=== PATIENT | male | born 1970 | race Two or more races ===

== ENCOUNTER 2025-05-26 02:10 | Inpatient (IN) | payer MEDICAID, OTHER ==
[~2025-05-26] VITALS: Ht 160 cm; Wt 65.8 kg
[2025-05-26] MEDS: SODIUM CHLORIDE 0.9% 1,000 ML IV ONE ×5 (02:34→21:14)
--- NOTE | 2025-05-26 02:34 | ECG ---
[facility] Test Date: 2025-05-26 Test Time: 02:15:51 Pat Name: JEAN PAUL AGUILLON Department: ED Room: 1030-ER Gender: M Cycle Analyst: TANESHA : 1970 Requested By: EMERGENCY EMERGENCY Order Number: [id number] Reading MD: Cory Norris Measurements Intervals [place] Rate: 134 P: 82 AR: 180 QRS: 83 QRSD: 95 T: -17 QT: 307 QTc: 459 Interpretive Statements Sinus tachycardia Consider right atrial enlargement Abnormal R-wave progression, early transition Borderline repolarization abnormality Borderline ST elevation, anterolateral leads Electronically Signed On 05-26-2025 18:00:14 PST by Cory Norris Please click the below link to view image of tracing.
[2025-05-26 02:35] VITALS: PULSE 129; RESP 28; O2SAT 94
[2025-05-26 02:46] LABS: Hematocrit 36.3 % (41.0-53.0); Hemoglobin 12.6 g/dL (13.5-17.5); Mean Corpuscular Hemoglobin 30.4 pg (28.0-32.0); Mean Corpuscular Volume 87.7 fL (80.0-100.0); Nucleated Red Blood Cells % 0.0 %
[2025-05-26 03:08] LABS: Alanine Aminotransferase 800 U/L (7-40); Albumin 3.2 g/dL (3.2-4.8); Alkaline Phosphatase 378 U/L (46-116); Anion Gap 14 (5-15); BUN/Creatinine Ratio 24.6 (10.0-20.0); Blood Urea Nitrogen 32 mg/dL (9-23); Calcium 7.7 mg/dL (8.7-10.4); Carbon Dioxide 19 mmol/L (20-31); Chloride 97 mmol/L (98-107); Glucose 272 mg/dL (74-106); Lipase 26 U/L (12-53); Potassium 3.5 mmol/L (3.5-5.1); Sodium 130 mmol/L (136-145); Total Protein 5.5 g/dL (5.7-8.2)
[2025-05-26 03:25] LABS: Bilirubin, Total 2.8 mg/dL (0.2-1.0)
[2025-05-26 03:26] LABS: Lactic Acid w/Reflex 3.2 mmol/L (0.4-2.0)
[2025-05-26] MEDS ORDERED: VANCOMYCIN PER PHARMACY 0 MG IV SCH (03:30)
[2025-05-26 03:46] LABS: Urine Amorphous Crystal FEW /hpf (None Seen); Urine Protein, UAD 1+ (Negative)
--- NOTE | 2025-05-26 03:49 | ED.PDOC ---
Sepsis Screening Sepsis Initial Screening Date: May 26, 2025 Time of Initial Screenin Temp<36 C (96.8 F) or >38.3 C: Yes Respiratory Rate >20: Yes Heart Rate >90: Yes SBP <90 or MAP <65 mmHG: No New Acute Mental Status Change: No Is the patient on CPAP, BIPAP,: No History of Present Illness HPI Comments 54-year-old male with a past medical history of [id number] type 2 diabetes mellitus, and hyperlipidemia has come to the emergency room with chief complaints of abdominal pain, high blood glucose levels and decreased appetite. Patient states that it began with body pain 5 days ago and he began having severe abdominal pain 2 days ago- located 2 cm next to the umbilicus on the right side, dull, 9/10 in intensity, constant, non-radiating, with no aggravating or relieving factors, associated with 1 episode of vomiting the same day, inability to keep down any food and urinary symptoms (dysuria, increased frequency). Today he states that the abdominal pain was worsening, and he began developing fever, chills and headache prompting him to visit the ER. Patient also reports his blood glucose levels have been increasing (despite his compliance with home medication glipizide and metformin) stating his last blood glucose level before coming to the ER was 380. On initial evaluation, patient is septic with 103.1, HR 135, RR 39, wbc 3.6. LA was 3.2, ALT 800, AST 849, ALP 378, total bilirubin 2.8. CT of the abdomen shows 'large hypodense heterogeneous lesion in the posterior aspect of the right lobe measuring 8.3 cm diameter. This is of uncertain etiology. The appearance could be consistent with a hepatic abscess. HEPATIC Neoplasm is also concern.' USG abdomen shows: 'Ill- defined hypoechoic mass in the right hepatic lobe measuring 6.4 x 6.7 x 6.3 cm. Recommend further evaluation with MRI liver mass protocol; Gallbladder wall thickening which may be due to contracted state. No gallstones seen.' Patient needs further evaluation and management. Patient is from [place], and since he is unstable, authorization was requested for continued care at this facility ([facility]) and authorization was given by Dr. Vences from [place]. Authorization number: [id number]. Chief Complaint: Abdominal Pain Time Seen by MD: 03:15 Primary Care Provider: Thang () Reviewed Notes: Medications, Allergies Allergies: Coded Allergies: NO KNOWN ALLERGIES (Unverified , 05/26/25) Information Source: Patient Mode of Arrival: EMS Severity: Severe Timing: Days Duration: Days Past Medical History PAST MEDICAL HISTORY: DM, High Lipids Surgical History: Denies all surgeries Family History Family History: Reviewed,noncontributory to illness Social History Smoker: Quit Greater Than 1 Year Alcohol: Denies ETOH Use Drugs: Denies Drug Use Lives In: Home Constitutional: Chills, Fever, Other (Body ache) EENTM: No Symptoms Reported Respiratory: No Symptoms Reported Cardiovascular: No Symptoms Reported Gastrointestinal: Abdominal Pain, Constipation, Nausea, Poor Appetite, Poor Fluid Intake, Vomiting Genitourinary: Dysuria, Frequency Neurological: No Symptoms Reported Musculoskeletal: No Symptoms Reported Integumentary: No Symptoms Reported Hematologic/Lymphatic: No Symptoms Reported Endocrine: No Symptoms Reported Psychiatric: N/A Physical Exam General Appearance: Moderate Distress HEENT: None Neck: None Respiratory: No Respiratory Distress, Normal Breath Sounds Cardiovascular: Tachycardia Breast Exam: Deferred Gastrointestinal: RLQ, Suprapubic, Tenderness Genitalia: Deferred Pelvic: Deferred Rectal: Deferred Extremities: Normal inspection, Normal range of motion, No pedal edema Neurologic: None Cerebellar Function: Normal Reflexes: Normal Skin: Normal Color Lymphatic: None Sepsis Initial Assessment Sepsis Initial Assessment Date of Initial Assessment: May 26, 2025 Time of Initial Assessment: 23:20 Temperature (Fahrenheit): 103.1 Temperature Source: Oral Pulse Rate (adult): 129 Blood Pressure Systolic: 142 Blood Pressure Diastolic: 74 Blood Pressure Mean: 96 Respiratory Rate: 28 Respiratory Effort: Non-Labored Respiratory Pattern: Regular Oxygen Saturation: 96 Pulse Rhythm: Regular Breath sounds: Clear Capillary Refill: < 3 seconds Pulse Location: Radial Pulse Strength: Normal Pulse Assessment Method: Face And Fill Packer Skin Temperature: Warm Skin Moisture: Dry Skin Tugor: WNL Skin Color: WNL Fingernail Color: WNL Was a procedure done? Was a procedure done?: No Differential Dx Considerations may include: Sepsis to due Hepatic abscess, hepatic malignancy SEPSIS Sepsis Screen Date sepsis recognized/suspect: May 26, 2025 Time Sepsis recognized/suspect: 0230 Recent Procedure: No On Antibiotic Therapy: No Respiratory Rate >20: Yes Heart Rate >90: Yes Temp<36 C (96.8 F) or >38.3 C: Yes SBP <90 or MAP <65 mmHG: No New Acute Mental Status Change: No Is the patient on CPAP, BIPAP,: No Physician Orders Vital Signs Q1HR (05/26/25 02:17) Saline Lock (05/26/25 02:17) Face And Fill Packer (05/26/25 ) Rectal/Core Temps Only (05/26/25 02:17) Notify Md If Abnormal Vs (05/26/25 02:17) Blood Culture (05/26/25 02:17) Chest Xray 1 View (05/26/25 02:17) Electrocardigram (05/26/25 02:21) Vancomycin Per Pharmacy (05/26/25 03:30) Urine Bacterial Culture (05/26/25 03:20) Ct Ab Pel With Iv Con Only (05/26/25 04:55) Blood Glucose Assessment (05/26/25 04:55) Abdomen Complete Sonogram (05/26/25 04:06) * Radiologist Consult (05/26/25 07:16) * Surgical Consult (05/26/25 07:16) Vital Signs Date Time Temp Pulse Resp B/P (MAP) Pulse Ox O2 Delivery O2 Flow Rate FiO2 05/26/25 11:30 99.1 152 52 134/95 (108) 92 99.1 05/26/25 11:00 134 41 144/92 (109) 100 05/26/25 07:54 113 26 97 Nasal Cannula* 2 28 05/26/25 07:53 98.1 113 26 96/65 (75) 97 98.1 05/26/25 05:30 135 41 129/83 (98) 92 05/26/25 04:00 130 35 109/66 (80) 92 05/26/25 02:35 129 28 94 Room Air* 0 21 05/26/25 02:32 103.1 135 18 142/74 96 103.1 05/26/25 02:30 136 39 130/78 (95) 92 05/26/25 02:15 134 Laboratory Tests Test 05/26/25 02:26 05/26/25 04:43 Lactic Acid Level 3.2 mmol/L (0.4-2.0) *H 2.7 mmol/L (0.4-2.0) *H White Blood Count 3.6 10^3/uL (4.4-10.8) L Reassessment Post Fluid Date of Reassessment: May 26, 2025 Time of Reassessment: 04:20 Temperature: 98.4 Systolic BP: 110 Blood Pressure Time: 04:18 Respiration: 32 Oxygen Saturation: 94 Pulse rate: 130 Pulse Location: Radial Pulse Strength: Normal Capillary Refill Exam: < 3 seconds Skin Temperature: Warm Skin Moisture: Dry Skin Tugor: WNL Skin Color: WNL Fingernail Color: WNL Departure 1 Departure Time of Disposition: 07:16 Impression: Primary Impression: Sepsis Additional Impression: Hepatic abscess Disposition: ADMITTED INPATIENT Admit to: Tele Condition: Unstable Comments Attestation: I personally saw and evaluated the patient. I agree with the findings and plan of care as documented by the resident note. SY VALENCIA MD Critical Care Note Critical Care Time?: No Stability Stability form required: No Heart Score Heart Score: Heart Score Response (Comments) Value History N/A 0 EKG N/A 0 Age N/A 0 Risk Factors N/A 0 Troponin N/A 0 Total 0 DAVID CROCKER RESIDENT May 26, 2025 03:49 SY VALENCIA MD May 27, 2025 22:39
[2025-05-26] MEDS: VANCOMYCIN 1GM/250ML KIT IV ONE (04:15)
--- NOTE | 2025-05-26 04:35 | DVH ---
CHEST RADIOGRAPH Indication: Suspected Sepsis Technique: 1 view Comparison: None FINDINGS: Lines and Tubes: External leads. Lungs/Pleura: Low lung volumes with vascular crowding and interstitial prominence. No focal consolidation. No large pleural effusion or pneumothorax. Cardiomediastinum: Size within normal limits for technique. Other: No acute osseous abnormality. IMPRESSION: Interstitial opacities may be exaggerated by low lung volumes, represent edema or atypical infection. No appreciable consolidation.
[2025-05-26] MEDS: IOHEXOL 300 MG/ML 100ML BOTTLE IJ ONE (05:02)
[2025-05-26] MEDS: ACETAMINOPHEN 500 MG TAB or CAP PO ONE (05:20)
[2025-05-26 05:51] LABS: COVID19 ANTIGEN SOFIA FIA NEGATIVE (NEGATIVE)
--- NOTE | 2025-05-26 06:18 | DVH ---
MEDICAL RECORDS NUMBER: [id number] PROCEDURE: CT CT AB PEL WITH IV CON ONLY DATE: 05/26/2025 05:47 AM HISTORY: Abdominal pain, elevated LFTs, please measure CBD TECHNIQUE: CT of the chest, abdomen and pelvis is performed with IV contrast. IV Contrast: Omnipaque 300, 100 cc Oral Contrast: No oral contrast was utilized. COMPARISON: None RADIATION DOSE INFORMATION: Automated exposure control dose reduction techniques were used. FINDINGS: Lungs: Stranding chronic appearing changes are suspected in the lung bases. No large consolidation is seen. Mediastinum:Mediastinal structures appear unremarkable. Liver: There is a Large Hypodense Heterogeneous lesion in the posterior aspect of the right lobe measuring 8.3 cm in diameter. The remainder of the liver appears unremarkable. Biliary ducts: There is no evidence of intrahepatic or extrahepatic biliary ductal dilatation. The common bile duct measures about 3 mm. Gallbladder: No abnormality is seen of the gallbladder. Spleen: The spleen is normal in size without focal lesion. Stomach: The stomach appears unremarkable. Pancreas: The pancreas is unremarkable. Adrenal glands: The adrenal glands are unremarkable. Kidneys: The kidneys appear grossly unremarkable. No hydronephrosis is seen. No focal lesions are seen. No renal or ureteral stones are seen. Aorta and IVC: The aorta and IVC are patent and are normal in size. Mesenteric vessels: Major mesenteric vessels appear to be intact. Bowel: The visualized portions of the small and large bowel are normal in caliber. Appendix: The appendix is unremarkable. Pelvis:Pelvic structures appear unremarkable. Lymph nodes: There is no evidence of lymphadenopathy. Osseous structures: The osseous structures are intact. No lytic or blastic osseous lesion is noted. Free fluid/free air: None IMPRESSION: 1. Large hypodense heterogeneous lesion in the posterior aspect of the right lobe of the liver measuring 8.3 cm in diameter. this is of uncertain etiology. The appearance could be consistent with a hepatic abscess. HEPATIC Neoplasm is also concern. 2. Further evaluation with MRI of the liver with and without contrast is recommended.
--- NOTE | 2025-05-26 06:53 | DVH ---
INDICATION: transaminitis, ruq abdominal pain, septic TECHNIQUE: Multiple real-time sonographic images of the abdomen were obtained. COMPARISON: CT abdomen and pelvis dated 05/26/25. FINDINGS: The liver is heterogeneous in echogenicity. The liver measures 19.1 cm. There is an ill-defined hypoechoic mass in the right hepatic lobe measuring 6.4 x 6.7 x 6.3 cm. No intrahepatic biliary ductal dilatation is noted. The gallbladder wall measures 1.1 cm. Gallbladder is contracted. No gallstones or sludge is seen. The common duct is not visualized. No pericholecystic fluid is noted. Negative sonographic Moyer's sign noted. The right kidney measures 11.3 cm. No hydronephrosis. The left kidney measures 10.8 cm. No hydronephrosis. There is increased echogenicity in the left interpolar kidney raising suspicion for dirty shadowing . The spleen measures 12.7 cm. The echogenicity is within normal limits. The pancreas is not well visualized due to obscuration from bowel gas. The visualized portions of the IVC and aorta are grossly unremarkable. IMPRESSION: 1. Ill-defined hypoechoic mass in the right hepatic lobe measuring 6.4 x 6.7 x 6.3 cm. Recommend further evaluation with MRI liver mass protocol. 2. Gallbladder wall thickening which may be due to contracted state. No gallstones seen. 3. Increased echogenicity in the left interpolar kidney raising suspicion for "dirty shadowing". No gas is identified with the left kidney on the recent CT of the abdomen pelvis performed same date. This could therefore be artifactual.
[2025-05-26 07:54] VITALS: PULSE 113; RESP 26; O2SAT 97
[2025-05-26 08:57] LABS: INR 1.03 (0.9-1.15); Partial Thromboplastin Time 29.5 SEC (24.5-34.5); Prothrombin Time 10.9 sec (9.3-11.8)
[2025-05-26] MEDS ORDERED: NITROGLYCERIN 0.4 MG SL TAB SL PRN (11:45)
[2025-05-26] MEDS ORDERED: ACETAMINOPHEN 325 MG TAB PO PRN (11:45)
[2025-05-26] MEDS ORDERED: DOCUSATE SOD 100 MG CAP PO PRN (11:45)
[2025-05-26] MEDS ORDERED: MORPHINE SULFATE INJ 2 MG/ml SYRG IV PRN ×2 (11:45)
[2025-05-26] MEDS ORDERED: ONDANSETRON HCL 4 MG/2 ML VIAL IV PRN (11:45)
[2025-05-26] MEDS ORDERED: DEXTROSE (50%) 50ML SYRG IV PRN (11:45)
[2025-05-26] MEDS ORDERED: HYDROcodone-ACET 5/325MG TAB PO PRN (11:45)
[2025-05-26] MEDS: LEVALBUTEROL HCL 1.25 MG/3 ML NEB NEB ONE (12:00)
[2025-05-26] MEDS: LEVALBUTEROL HCL 1.25 MG/3 ML NEB ONE (12:00)
[2025-05-26] MEDS: ACCU-CHEK COMFORT CURVE STRIP VI SCH (12:13)
[2025-05-26] MEDS: InsuLIN REG 1unit/0.01ml Soln (100units/ml) SC SCH (12:17)
--- NOTE | 2025-05-26 12:23 | DVHHP2 ---
History of Present Illness Reason for Visit: Abdominal pain History of Present Illness Terrence Kirby is a 54-year-old male with past medical history of diabetes, and hypertension who came to the hospital for abdominal pain, decreased appetite, and fevers. Patient states he started feeling bad about 5 days ago with flu like symptoms. Then 2 days ago he started having abdominal pain, decreased appetite, and nausea and vomiting. He came to the hospital due to his pain increasing and developing fever, chills, headache, and elevated blood sugars. While in the ER patient showed signs of being septic with fever, sinus tachycardia, tachypneic, & wbc 3.6. His liver enzymes were also elevated prompting an abdominal ul trasound that showed a liver mass vs abscess, followed by at CT of the abdomen. Patient will require a MRI of abdomen with contrast, will have to wait 24 hours for test due to the need for IV contrast. Cardiovascular: HTN Endocrine: Diabetes Past Surgical History: None Smoke: Quit (3 years ago) ALCOHOL: rare Drugs: None Lives: Alone Domestic Violence: Neg Review of Systems Constitutional: Yes: Fever, Chills, Weakness, Malaise; No: Sweats, Other Eyes: No: Pain, Vision change, Conjunctivae inflammation, Eyelid inflammation, Other, Redness ENT: No: Ear pain, Ear discharge, Nose pain, Nose discharge, Nose congestion, Mouth pain, Mouth swelling, Throat pain, Throat swelling, Other Respiratory: No: Cough, Dry, Shortness of breath, SOB with excertion, Wheezing, Hemoptysis, Pleuritic Pain, Sputum, Wheezing, Other Cardiovascular: No: Chest Pain, Palpitations, Orthopnea, Paroxysmal Noc. Dyspnea, Edema, Lt Headedness, Other Gastrointestinal: Abdominal Pain; No: Nausea, Vomiting, Diarrhea, Constipation, Melena, Hematochezia, Other Genitourinary: No Dysuria, No Frequency, No Incontinence, No Hematuria, No Retention, No Other Musculoskeletal: No: other, neck pain, shoulder pain, arm pain, back pain, hand pain, leg pain, foot pain Skin: No: Rash, Lesions, Jaundice, Bruising, Other Neurological: No: Weakness, Numbness, Incoordination, Change in speech, Confusion, Seizures, Other Allergies: Coded Allergies: NO KNOWN ALLERGIES (Unverified , 05/26/25) Medications Current Medications Medications Dose Ordered Sig/Sung Route Start Time Stop Time Status Last Admin Dose Admin Vancomycin HCl 0 ml @ 0 mls/hr PER PHARMACY IV 05/26/25 03:30 Exam Vital Signs Vital Signs Date Time Temp Pulse Resp B/P (MAP) Pulse Ox O2 Delivery O2 Flow Rate FiO2 05/26/25 07:54 113 26 97 Nasal Cannula* 2 28 05/26/25 07:53 98.1 96/65 (75) 98.1 General Appearance: Alert, Oriented X3, Cooperative, severe distress HEENT: Atraumatic, PERRLA, Other (Mucous memb dry) Respiratory: Other (bilateral wheezing, increased work of breathing, shortness of breath) Cardiovascular: Other (140-150's) Abdominal: Other (Tenderness to RUQ) Extremities: No clubbing, No cyanosis, No edema, Normal pulses Skin: No rashes, No breakdown, No significant lesion Neuro: Normal gait Psych/Mental Status: Mental status NL, Mood NL Labs/Xrays Labs Test 05/26/25 07:55 05/26/25 06:25 05/26/25 04:43 05/26/25 04:40 Range/Units Prothrombin Time 10.9 9.3-11.8 sec Prothrombin Time INR 1.03 0.9-1.15 Activated Partial Thromboplast Time 29.5 24.5-34.5 SEC Troponin I High Sensitivity 5 </=54 ng/L Lactic Acid Level 2.7 *H 0.4-2.0 mmol/L Influenza Type A Antigen Negative Negative Influenza Type B Antigen Negative Negative SARS-CoV-2 Antigen (Rapid) Negative NEGATIVE Test 05/26/25 03:15 05/26/25 02:26 Range/Units Urine Color Yellow Yellow Urine Clarity Ex.turbid Clear Urine pH 5.5 5.0-9.0 Urine Specific [place] 1.018 1.001-1.035 Urine Protein 1+ H Negative Urine Ketones 1+ H Negative Urine Blood 2+ H Negative /uL Urine Nitrite Negative Negative Urine Bilirubin 1+ Negative Urine Urobilinogen 4 H Negative mg/dL Urine Leukocyte Esterase Negative Negative /uL Urine RBC 2 0 - 3 /hpf Urine Microscopic WBC 4 H 0-3 /HPF Urine Squamous Epithelial Cells Few <5 /hpf Urine Amorphous Crystals Few None Seen /hpf Urine Bacteria Few H None Seen /hpf Urine Hyaline Casts Few 0 - 2 /lpf Urine Mucus Few None Seen Urine Glucose 4+ H Normal mg/dL White Blood Count 3.6 L 4.4-10.8 10^3/uL Red Blood Count 4.15 L 4.5-5.90 10^6/uL Hemoglobin 12.6 L 13.5-17.5 g/dL Hematocrit 36.3 L 41.0-53.0 % Mean Corpuscular Volume 87.7 80.0-100.0 fL Mean Corpuscular Hemoglobin 30.4 28.0-32.0 pg Mean Corpuscular Hemoglobin Concent 34.7 32.0-36.0 g/dL Red Cell Distribution Width 13.3 11.8-14.3 % Platelet Count 77 L 140-450 10^3/uL Mean Platelet Volume 8.1 6.9-10.8 fL Neutrophils (%) (Auto) 91.6 H 37.0-80.0 % Lymphocytes (%) (Auto) 3.4 L 10.0-50.0 % Monocytes (%) (Auto) 3.0 0.0-12.0 % Eosinophils (%) (Auto) 1.9 0.0-7.0 % Basophils (%) (Auto) 0.1 0.0-2.0 % Neutrophils # (Auto) 3.3 1.6-8.6 10 ^3/uL Lymphocytes # (Auto) 0.1 L 0.4-5.4 10 ^3/uL Monocytes # (Auto) 0.1 0-1.3 10 ^3/uL Eosinophils # (Auto) 0.1 0-0.8 10 ^3/uL Basophils # (Auto) 0 0-0.2 10 ^3/uL Nucleated Red Blood Cells 0.0 % Sodium Level 130 L 136-145 mmol/L Potassium Level 3.5 3.5-5.1 mmol/L Chloride Level 97 L 98-107 mmol/L Carbon Dioxide Level 19 L 20-31 mmol/L Anion Gap 14 5-15 Blood Urea Nitrogen 32 H 9-23 mg/dL Creatinine 1.30 0.700-1.30 mg/dL Glomerular Filtration Rate Calc 64 >90 mL/min BUN/Creatinine Ratio 24.6 H 10.0-20.0 Serum Glucose 272 H 74-106 mg/dL Calcium Level 7.7 L 8.7-10.4 mg/dL Total Bilirubin 2.8 H 0.2-1.0 mg/dL Aspartate Amino Transferase (AST) 849 H 13-40 U/L Alanine Aminotransferase (ALT) 800 H 7-40 U/L Alkaline Phosphatase 378 H 46-116 U/L Total Protein 5.5 L 5.7-8.2 g/dL Albumin 3.2 3.2-4.8 g/dL Lipase 26 12-53 U/L CHEST RADIOGRAPH FINDINGS: Lines and Tubes: External leads. Lungs/Pleura: Low lung volumes with vascular crowding and interstitial prominence. No focal consolidation. No large pleural effusion or pneumothorax. Cardiomediastinum: Size within normal limits for technique. Other: No acute osseous abnormality. IMPRESSION: Interstitial opacities may be exaggerated by low lung volumes, represent edema or atypical infection. No appreciable consolidation. TECHNIQUE: Multiple real-time sonographic images of the abdomen were obtained. COMPARISON: CT abdomen and pelvis dated 05/26/25. FINDINGS: The liver is heterogeneous in echogenicity. The liver measures 19.1 cm. There is an ill-defined hypoechoic mass in the right hepatic lobe measuring 6.4 x 6.7 x 6.3 cm. No intrahepatic biliary ductal dilatation is noted. The gallbladder wall measures 1.1 cm. Gallbladder is contracted. No gallstones or sludge is seen. The common duct is not visualized. No pericholecystic fluid is noted. Negative sonographic Moyer's sign noted. The right kidney measures 11.3 cm. No hydronephrosis. The left kidney measures 10.8 cm. No hydronephrosis. There is increased echogenicity in the left interp olar kidney raising suspicion for dirty shadowing . The spleen measures 12.7 cm. The echogenicity is within normal limits. The pancreas is not well visualized due to obscuration from bowel gas. The visualized portions of the IVC and aorta are grossly unremarkable. IMPRESSION: 1. Ill-defined hypoechoic mass in the right hepatic lobe measuring 6.4 x 6.7 x 6.3 cm. Recommend further evaluation with MRI liver mass protocol. 2. Gallbladder wall thickening which may be due to contracted state. No galls tones seen. 3. Increased echogenicity in the left interpolar kidney raising suspicion for "dirty shadowing". No gas is identified with the left kidney on the recent CT of the abdomen pelvis performed same date. This could therefore be artifactual. PROCEDURE: CT CT AB PEL WITH IV CON ONLY FINDINGS: Lungs: Stranding chronic appearing changes are suspected in the lung bases. No large consolidation is seen. Mediastinum:Mediastinal structures appear unremarkable. Liver: There is a Large Hypodense Heterogeneous lesion in the posterior aspect of the right lobe measuring 8.3 cm in diameter. The remainder of the liver appears unremarkable. Biliary ducts: There is no evidence of intrahepatic or extrahepatic biliary ductal dilatation. The common bile duct measures about 3 mm. Gallbladder: No abnormality is seen of the gallbladder. Spleen: The spleen is normal in size without focal lesion. Stomach: The stomach appears unremarkable. Pancreas: The pancreas is unremarkable. Adrenal glands: The adrenal glands are unremarkable. Kidneys: The kidneys appear grossly unremarkable. No hydronephrosis is seen. No focal lesions are seen. No renal or ureteral stones are seen. Aorta and IVC: The aorta and IVC are patent and are normal in size. Mesenteric vessels: Major mesenteric vessels appear to be intact. Bowel: The visualized portions of the small and large bowel are normal in caliber. Appendix: The appendix is unremarkable. Pelvis:Pelvic structures appear unremarkable. Lymph nodes: There is no evidence of lymphadenopathy. Osseous structures: The osseous structures are intact. No lytic or blastic osse ous lesion is noted. Free fluid/free air: None IMPRESSION: 1. Large hypodense heterogeneous lesion in the posterior aspect of the right lobe of the liver measuring 8.3 cm in diameter. this is of uncertain etiology. The appearance could be consistent with a hepatic abscess. HEPATIC Neoplasm is also concern. 2. Further evaluation with MRI of the liver with and without contrast is recommended. SEPSIS Sepsis Screen Date sepsis recognized/suspect: May 26, 2025 Time Sepsis recognized/suspect: 229 Recent Procedure: No On Antibiotic Therapy: No Respiratory Rate >20: Yes Heart Rate >90: Yes Temp<36 C (96.8 F) or >38.3 C: Yes SBP <90 or MAP <65 mmHG: No New Acute Mental Status Change: No Is the patient on CPAP, BIPAP,: No Physician Orders Ct Ab Pel With Iv Con Only (05/26/25 04:55) Blood Glucose Assessment (05/26/25 04:55) Abdomen Complete Sonogram (05/26/25 04:06) * Radiologist Consult (05/26/25 07:16) * Surgical Consult (05/26/25 07:16) Sodium Chloride 0.9% (05/26/25 11:45) Admit (05/26/25 11:41) Code Status (05/26/25 11:41) Hydrocodone-Acet 5/325mg Tab ([place] /32 (05/26/25 11:45) Ondansetron Hcl (Zofran) (05/26/25 11:45) Docusate Sodium Capsule (Colace Capsule) (05/26/25 11:45) Complete Blood Count (05/27/25 04:00) Comprehensive Metabolic Panel (05/27/25 04:00) Npo (Nothing By Mouth) Diet (05/26/25 Lunch) Condition: Critical (05/26/25 11:41) Acetaminophen Tablet (Tylenol Tablet) (05/26/25 11:45) Morphine Sulfate Injection (05/26/25 11:45) Nitroglycerin Sublingual (Ntrostat Subli (05/26/25 11:45) Morphine Sulfate Injection (05/26/25 11:45) Stat Ekg For Chest Pain (05/26/25 11:41) Notify Md Of Changes From Base (05/26/25 11:41) Train Planner For 24 Hours (05/26/25 11:41) Emergency Dysrhythmia Protocol (05/26/25 11:41) Rhythm Strips Once Every Shift (05/26/25 11:41) Oxygen By Nasal Cannula (05/26/25 11:41) Mri Abdomen W And Wo (05/26/25 11:41) Glucose Blood (Accu-Chek Comfort Curve T (05/26/25 12:00) Mild Sliding Scale Npo - Q6hr (05/26/25 12:00) Dextrose 50% Syringe (05/26/25 11:45) Vital Signs Date Time Temp Pulse Resp B/P (MAP) Pulse Ox O2 Delivery O2 Flow Rate FiO2 05/26/25 07:54 113 26 97 Nasal Cannula* 2 28 05/26/25 07:53 98.1 113 26 96/65 (75) 97 98.1 05/26/25 05:30 135 41 129/83 (98) 92 05/26/25 04:00 130 35 109/66 (80) 92 Laboratory Tests Test 05/26/25 02:26 05/26/25 04:43 Lactic Acid Level 3.2 mmol/L (0.4-2.0) *H 2.7 mmol/L (0.4-2.0) *H White Blood Count 3.6 10^3/uL (4.4-10.8) L Medications Medications Dose Ordered Sig/Usng Route Start Time Stop Time Status Last Admin Dose Admin Acetaminophen 1,000 mg ONCE ONCE PO 05/26/25 05:00 05/26/25 05:01 DC 05/26/25 05:20 1,000 MG Ceftriaxone Sodium 50 ml @ 100 mls/hr ONCE ONCE IV 05/26/25 03:30 05/26/25 03:59 DC 05/26/25 03:45 100 MLS/HR Sodium Chloride 1,000 ml @ 130 mls/hr Q7H42M ONCE IV 05/26/25 02:30 05/26/25 10:11 DC 05/26/25 03:20 130 MLS/HR Sodium Chloride 1,000 ml @ 1,000 mls/hr Q1H ONCE IV 05/26/25 02:30 05/26/25 03:29 DC 05/26/25 02:34 1,000 MLS/HR Sodium Chloride 1,000 ml @ 1,000 mls/hr Q1H ONCE IV 05/26/25 03:30 05/26/25 04:29 DC 05/26/25 03:30 1,000 MLS/HR Vancomycin HCl 250 ml @ 250 mls/hr ONCE ONCE IV 05/26/25 03:30 05/26/25 04:29 DC 05/26/25 04:15 250 MLS/HR Reassessment Post Fluid Date of Reassessment: May 26, 2025 Time of Reassessment: 04:20 Temperature: 98.4 Systolic BP: 110 Blood Pressure Time: 04:18 Respiration: 32 Oxygen Saturation: 94 Pulse rate: 130 Pulse Location: Radial Pulse Strength: Normal Capillary Refill Exam: < 3 seconds Skin Temperature: Warm Skin Moisture: Dry Skin Tugor: WNL Skin Color: WNL Fingernail Color: WNL Assessment/Plan Assessment/Plan Assessment: Sepsis, Possible hepatic abscess, Possible hepatic mass, Lactic acidosis, Hyperbilirubinemia, Transaminitis, Hypertension, Diabetes, Plan: Admit to [facility], IR consult, Surgical consult, NPO, MRI of abdomen with liver protocol, IV antibiotics, IV hydration, Pain management, Supplemental oxygen as needed, Breathing treatments, D-dimer, Bilateral lower extremity ultrasound, Consider VQ scan to R/O PE, Accu checks with sliding scale, Home medications reconciled, Plan discussed with: Patient My Orders Orders - MORA CLOUD Procedure Category Date Status Time Sodium Chloride 0.9% PHA 05/26/25 In Process 11:45 Admit ADMIT 05/26/25 Verified 11:41 Code Status CODE 05/26/25 Verified 11:41 Hydrocodone-Acet PHA 05/26/25 Verified 5/325mg Tab ([place] 11:45 Ondansetron Hcl PHA 05/26/25 Verified (Zofran) 11:45 Docusate Sodium PHA 05/26/25 Verified Capsule (Colace 11:45 Complete Blood Count LAB 05/27/25 Verified 04:00 Comprehensive LAB 05/27/25 Verified Metabolic Panel 04:00 Npo (Nothing By DIET 05/26/25 Verified Mouth) Diet Lunch Condition: Critical [facility] [place] 05/26/25 Verified 11:41 Acetaminophen Tablet PHA 05/26/25 Verified (Tylenol Tablet) 11:45 Morphine Sulfate PHA 05/26/25 Verified Injection 11:45 Nitroglycerin PHA 05/26/25 Verified Sublingual (Ntrostat 11:45 Morphine Sulfate PHA 05/26/25 Verified Injection 11:45 Stat Ekg For Chest [facility] [place] 05/26/25 Verified Pain 11:41 Notify Md Of Changes [facility] [place] 05/26/25 Verified From Base 11:41 Train Planner For [facility] [place] 05/26/25 Verified 24 Hours 11:41 Emergency Dysrhythmia [facility] [place] 05/26/25 Verified Protocol 11:41 Rhythm Strips Once [facility] [place] 05/26/25 Verified Every Shift 11:41 Oxygen By Nasal RT 05/26/25 Verified Cannula 11:41 Mri Abdomen W And Wo MRI 05/26/25 Verified 11:41 Glucose Blood PHA 05/26/25 Verified (Accu-Chek Comfort 12:00 Mild Sliding Scale PHA 05/26/25 Verified Npo - Q6hr 12:00 Dextrose 50% Syringe PHA 05/26/25 Verified 11:45 Date of Service: May 26, 2025 Billing Provider: MORA CLOUD Common Visit Codes: [id number] INP/OBS CARE (HIGH) MORA CLOUD May 26, 2025 12:23
[2025-05-26 12:29] LABS: Base Excess -7.1 mmol/L (-2.0-3.0)
[2025-05-26 12:51] VITALS: BP 96/65; PULSE 113; RESP 26; TEMP 98.1; O2SAT 97
[2025-05-26] MEDS: MEROPENEM 1GM IVPB 50 ML IV SCH (14:55)
[2025-05-26] MEDS: METOPROLOL TARTRATE 1MG/1ML-5ML VIAL IV ONE (15:05)
--- NOTE | 2025-05-26 15:59 | DVHCONRES ---
Date Seen: May 26, 2025 Resident Creating Document: ASHLYN REBOLLAR RESIDENT History of Present Illness 54-year-old male with no past medical history, does not follow up physician presented to the ER with a chief complaint of fever, chills, abdominal pain for the past 10 days. 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 Patient had a bowel movement earlier today. He reports that he went to [facility] for a complete checkup 2 months back which was unremarkable and a EGD was performed which was also unremarkable at the time patient does not have the reports available. No history of colonoscopy. Patient has reported he was taking 4-5 tablets every day of Tylenol 500 mg for the past 4 days Also reports having a rash on abdomen and the site of the bite chester on the left tee which resolved Past medical history: Denies past surgical history: Denies Medications: Denies Social history: Quit smoking 3 years back, former heavy smoker 1 pack a day for the past 20 years. Denies drinking or drug use Social history continued: Lives alone, has kids. Patient seen and examined. He is febrile, tachycardic. Right upper quadrant tenderness. Radiologist consulted. Allergies: Coded Allergies: NO KNOWN ALLERGIES (Unverified , 05/26/25) Current Medications Current Medications Medications (Trade) Dose Ordered Sig/Sung Route PRN Reason Start Time Stop Time Status Last Admin Vancomycin HCl 0 ml @ 0 mls/hr PER PHARMACY IV 05/26/25 03:30 Acetaminophen/ Hydrocodone Bitart ([place] 5/325MG Tab) 1 tab Q4HP PRN PO MODERATE PAIN (4-6 PAIN SCALE) 05/26/25 11:45 Hold Ondansetron HCl (Zofran) 4 mg Q4HP PRN IV NAUSEA / VOMITING 05/26/25 11:45 Docusate Sodium (Colace Capsule) 100 mg BIDPRN PRN PO FOR CONSTIPATION 05/26/25 11:45 Acetaminophen (Tylenol Tablet) 650 mg Q6HP PRN PO PAIN SCALE 1-3 OR TEMP>100.4 05/26/25 11:45 Hold Morphine Sulfate 2 mg Q4HPRN PRN IV SEVERE PAIN (7-10 PAIN SCALE) 05/26/25 11:45 Nitroglycerin (Ntrostat Sublingual) 0.4 mg Q5MINP PRN SL FOR CHEST PAIN 05/26/25 11:45 Morphine Sulfate 2 mg Q30M PRN IV FOR CHEST PAIN 05/26/25 11:45 Diagnostic Test (Pha) (Accu-Chek Comfort Curve T) 1 strip Q6HR 05/26/25 12:00 05/26/25 12:13 Insulin Human Regular (InsuLIN R) Q6HR SC 05/26/25 12:00 05/26/25 12:17 Dextrose 50 ml UD PRN IV Blood Sugar LESS THAN 60 05/26/25 11:45 Ipratropium [place] (Atrovent Medneb) 0.5 mg Q6HWA NEB 05/26/25 18:00 Levalbuterol HCl (Xopenex Medneb) 1.25 mg Q6HR NEB 05/26/25 18:00 Meropenem 50 ml @ 17 mls/hr Q8HR IV 05/26/25 14:00 05/26/25 14:55 Vital Signs Vital Signs Date Time Temp Pulse Resp B/P (MAP) Pulse Ox O2 Delivery O2 Flow Rate FiO2 05/26/25 15:05 151 111/60 05/26/25 12:51 98.1 26 97 4.0 36 98.1 05/26/25 12:01 Nasal Cannula* Physical Exam Young male patient lying in the bed, mild acute distress General: Well-built, low-grade fever, palor, mucosae are moist Cardiovascular: Tachycardia but regular S1 and S2. No murmurs, gallops or rubs. No JVD elevation. No pedal edema Respiratory: Normal B/L air entry on room air. Clear lung sounds on auscultation Abdomen: Soft, right lower quadrant tenderness, nondistended, hypoactive bowel sounds, no rebound tenderness, no organomegaly, no masses Genitourinary: Deferred MSK/skin: Mobilizes 4 limbs. Skin is dry and warm per, bite chester left tee Neurological: No motor, no sensitive deficits, normal speech. Pupils are isocoric and reactive. Psych/Mental Status: A/Ox3 Labs/Diagnostic Data Labs Test 05/26/25 12:25 05/26/25 12:19 05/26/25 07:55 05/26/25 06:25 Range/Units D-Dimer, Quantitative 4.84 H 0.0-0.49 mg/L FEU Carcinoembryonic Antigen 0.92 <=5.0 ng/mL Blood Gas Specimen Type Arterial Blood Gas Sample Site Left radial Blood Gas Patient Temperature 37.0 Arterial Blood Date Drawn [id number] Arterial Blood pH 7.476 H 7.350-7.450 Arterial Blood Partial Pressure CO2 19.8 *L 35.0-48.0 mmHg Arterial Blood Partial Pressure O2 69.3 L 83.0-108.0 mmHg Arterial Blood HCO3 14.3 L 21.0-28.0 mmol/L Arterial Blood Oxygen Saturation 93.2 L 94.0-98.0 % Arterial Blood Base Excess -7.1 L -2.0-3.0 mmol/L Arterial Blood Oxyhemoglobin 92.5 L 94.0-98.0 % Arterial Blood Carboxyhemoglobin 0.3 L 0.5-1.5 % Arterial Blood Methemoglobin 0.5 0.0-1.5 % Seven Test Yes Blood Gas Total Hemoglobin 12.60 L 13.5-17.5 g/dL Blood Gas Liter Flow 4.00 Blood Gas Modality Nasal cannula FiO2 % 36.0 Blood Gas Critical Value Read Back Yes Blood Gas Notified Whom Edi avery Blood Gas Notified Time [id number] Blood Gas Notified By Teresa david rrt Prothrombin Time 10.9 9.3-11.8 sec Prothrombin Time INR 1.03 0.9-1.15 Activated Partial Thromboplast Time 29.5 24.5-34.5 SEC Troponin I High Sensitivity 5 </=54 ng/L Test 05/26/25 04:43 05/26/25 04:40 05/26/25 03:15 05/26/25 02:33 Range/Units Lactic Acid Level 2.7 *H 0.4-2.0 mmol/L Influenza Type A Antigen Negative Negative Influenza Type B Antigen Negative Negative SARS-CoV-2 Antigen (Rapid) Negative NEGATIVE Urine Color Yellow Yellow Urine Clarity Ex.turbid Clear Urine pH 5.5 5.0-9.0 Urine Specific [place] 1.018 1.001-1.035 Urine Protein 1+ H Negative Urine Ketones 1+ H Negative Urine Blood 2+ H Negative /uL Urine Nitrite Negative Negative Urine Bilirubin 1+ Negative Urine Urobilinogen 4 H Negative mg/dL Urine Leukocyte Esterase Negative Negative /uL Urine RBC 2 0 - 3 /hpf Urine Microscopic WBC 4 H 0-3 /HPF Urine Squamous Epithelial Cells Few <5 /hpf Urine Amorphous Crystals Few None Seen /hpf Urine Bacteria Few H None Seen /hpf Urine Hyaline Casts Few 0 - 2 /lpf Urine Mucus Few None Seen Urine Glucose 4+ H Normal mg/dL Test 05/26/25 02:26 Range/Units White Blood Count 3.6 L 4.4-10.8 10^3/uL Red Blood Count 4.15 L 4.5-5.90 10^6/uL Hemoglobin 12.6 L 13.5-17.5 g/dL Hematocrit 36.3 L 41.0-53.0 % Mean Corpuscular Volume 87.7 80.0-100.0 fL Mean Corpuscular Hemoglobin 30.4 28.0-32.0 pg Mean Corpuscular Hemoglobin Concent 34.7 32.0-36.0 g/dL Red Cell Distribution Width 13.3 11.8-14.3 % Platelet Count 77 L 140-450 10^3/uL Mean Platelet Volume 8.1 6.9-10.8 fL Neutrophils (%) (Auto) 91.6 H 37.0-80.0 % Lymphocytes (%) (Auto) 3.4 L 10.0-50.0 % Monocytes (%) (Auto) 3.0 0.0-12.0 % Eosinophils (%) (Auto) 1.9 0.0-7.0 % Basophils (%) (Auto) 0.1 0.0-2.0 % Neutrophils # (Auto) 3.3 1.6-8.6 10 ^3/uL Lymphocytes # (Auto) 0.1 L 0.4-5.4 10 ^3/uL Monocytes # (Auto) 0.1 0-1.3 10 ^3/uL Eosinophils # (Auto) 0.1 0-0.8 10 ^3/uL Basophils # (Auto) 0 0-0.2 10 ^3/uL Nucleated Red Blood Cells 0.0 % Sodium Level 130 L 136-145 mmol/L Potassium Level 3.5 3.5-5.1 mmol/L Chloride Level 97 L 98-107 mmol/L Carbon Dioxide Level 19 L 20-31 mmol/L Anion Gap 14 5-15 Blood Urea Nitrogen 32 H 9-23 mg/dL Creatinine 1.30 0.700-1.30 mg/dL Glomerular Filtration Rate Calc 64 >90 mL/min BUN/Creatinine Ratio 24.6 H 10.0-20.0 Serum Glucose 272 H 74-106 mg/dL Calcium Level 7.7 L 8.7-10.4 mg/dL Total Bilirubin 2.8 H 0.2-1.0 mg/dL Aspartate Amino Transferase (AST) 849 H 13-40 U/L Alanine Aminotransferase (ALT) 800 H 7-40 U/L Alkaline Phosphatase 378 H 46-116 U/L Total Protein 5.5 L 5.7-8.2 g/dL Albumin 3.2 3.2-4.8 g/dL Lipase 26 12-53 U/L Microbiology Date/Time Source Procedure Growth Status 05/26/25 02:33 Blood Blood Culture - Preliminary Resulted Assessment Sepsis likely secondary to hepatic abscess Transaminitis likely secondary to above ? Tylenol toxicity Anemia likely normocytic chronic disease Acute kidney injury Lactic acidosis Secondary hypercoagulable [id number] 4.8 Prelim blood culture negative CT abdomen shows Large hypodense heterogeneous lesion in the posterior aspect of the right lobe of the liver measuring 8.3 cm in diameter. this is of uncertain etiology. The appearance could be consistent with a hepatic abscess. HEPATIC Neoplasm is also concern. Plan/Recommendation Follow up with the MRI abdomen with and without contrast. Radiology consultation appreciated for liver biopsy versus I&D. Recommend IV antibiotics, maintenance IV fluids Continue stool studies for ova and parasites, stool culture, stool WBC Follow up with hepatitis panel, acetaminophen levels, CK levels, LDH Follow up with tumor markers We will continue to follow up Thank you for consulting GI Plan discussed with the patient in which all questions have been answered Case discussed with Dr. Muñoz Plan discussed with: Patient ASHLYN REBOLLAR RESIDENT May 26, 2025 15:59
--- NOTE | 2025-05-26 16:32 | DVH ---
CLINICAL HISTORY: Ruled out DVT TECHNIQUE: Color and duplex doppler imagine of the bilateral lower extremity veins was performed. Vessel compression and augmentation if possible was also performed. COMPARISON: None FINDINGS: Right Lower Extremity: Right common femoral vein: Normal compressibility and flow. Right superficial femoral vein: Normal compressibility and flow. Right popliteal vein: Normal compressibility and flow. Left Lower Extremity: Left common femoral vein: Normal compressibility and flow. Left superficial femoral vein: Normal compressibility and flow. Left popliteal vein: Normal compressibility and flow. IMPRESSION: NO SONOGRAPHIC EVIDENCE FOR DEEP VENOUS THROMBOSIS IN THE BILATERAL LOWER EXTREMITY VEINS.
[2025-05-26] MEDS: SODIUM CHLORIDE 0.9% 1,000 ML IV SCH ×2 (16:48→22:52)
[2025-05-26] MEDS: PANTOPRAZOLE 40 MG/10 ML VIAL INJ IV ONE (16:48)
[2025-05-26] MEDS: VANCOMYCIN 750MG KIT 100 ML IV SCH (18:47)
--- NOTE | 2025-05-26 18:49 | DVHCONRES ---
Date Seen: May 26, 2025 Resident Creating Document: PAT MARQUEZ Jr., MD Referring Physician ER Reason for Consultation Abdominal pain History of Present Illness 54-year-old male with past medical history of diabetes, and hypertension who came to the hospital for abdominal pain, decreased appetite, and fevers. Patient states he started feeling bad about 5 days ago with flu like symptoms. Then 2 days ago he started having abdominal pain, decreased appetite, and nausea and vomiting. He came to the hospital due to his pain increasing and developing fever, chills, headache, and elevated blood sugars. While in the ER patient showed signs of being septic with fever, sinus tachycardia, tachypneic, & wbc 3.6. His liver enzymes were also elevated prompting an abdominal ultrasound that showed a liver mass vs abscess, followed by at CT of the abdomen. Past Medical History Diabetes hypertension Past Surgical History None Social History Quit smoking approximately three years ago occasional alcohol use Allergies: Coded Allergies: NO KNOWN ALLERGIES (Unverified , 05/26/25) Current Medications Current Medications Medications (Trade) Dose Ordered Sig/Sung Route PRN Reason Start Time Stop Time Status Last Admin Vancomycin HCl 0 ml @ 0 mls/hr PER PHARMACY IV 05/26/25 03:30 Acetaminophen/ Hydrocodone Bitart ([place] 5/325MG Tab) 1 tab Q4HP PRN PO MODERATE PAIN (4-6 PAIN SCALE) 05/26/25 11:45 Hold Ondansetron HCl (Zofran) 4 mg Q4HP PRN IV NAUSEA / VOMITING 05/26/25 11:45 Docusate Sodium (Colace Capsule) 100 mg BIDPRN PRN PO FOR CONSTIPATION 05/26/25 11:45 Acetaminophen (Tylenol Tablet) 650 mg Q6HP PRN PO PAIN SCALE 1-3 OR TEMP>100.4 05/26/25 11:45 Hold Morphine Sulfate 2 mg Q4HPRN PRN IV SEVERE PAIN (7-10 PAIN SCALE) 05/26/25 11:45 Nitroglycerin (Ntrostat Sublingual) 0.4 mg Q5MINP PRN SL FOR CHEST PAIN 05/26/25 11:45 Morphine Sulfate 2 mg Q30M PRN IV FOR CHEST PAIN 05/26/25 11:45 Diagnostic Test (Pha) (Accu-Chek Comfort Curve T) 1 strip Q6HR 05/26/25 12:00 05/26/25 18:38 Insulin Human Regular (InsuLIN R) Q6HR SC 05/26/25 12:00 05/26/25 12:17 Dextrose 50 ml UD PRN IV Blood Sugar LESS THAN 60 05/26/25 11:45 Ipratropium [place] (Atrovent Medneb) 0.5 mg Q6HWA NEB 05/26/25 18:00 Levalbuterol HCl (Xopenex Medneb) 1.25 mg Q6HR NEB 05/26/25 18:00 Meropenem 50 ml @ 17 mls/hr Q8HR IV 05/26/25 14:00 05/26/25 14:55 Sodium Chloride 1,000 ml @ 250 mls/hr Q4H IV 05/26/25 16:00 05/26/25 16:48 Pantoprazole Sodium (Protonix) 40 mg DAILY IV 05/27/25 10:00 Vancomycin HCl 100 ml @ 100 mls/hr Q14H IV 05/26/25 18:00 Review of Systems All systems reviewed otherwise negative other what is in HPI. Vital Signs Vital Signs Date Time Temp Pulse Resp B/P (MAP) Pulse Ox O2 Delivery O2 Flow Rate FiO2 05/26/25 18:00 142 42 109/70 (83) 93 05/26/25 16:36 98.4 98.4 05/26/25 12:51 4.0 36 05/26/25 12:01 Nasal Cannula* Physical Exam Head eyes ears nose and thorough exam patient's by mildly jaundice. Neck was supple no JVD no lymphadenopathy no carotid bruits lungs clear to auscultation heart was tachycardic abdomen was soft mild diffuse tenderness no rebound no guarding lower extremities palpable femoral and pedal pulses bilaterally. Labs/Diagnostic Data Labs Test 05/26/25 12:25 05/26/25 12:19 05/26/25 07:55 05/26/25 06:25 Range/Units D-Dimer, Quantitative 4.84 H 0.0-0.49 mg/L FEU Serum Osmolality 291 278-298 mOsm/kg Carcinoembryonic Antigen 0.92 <=5.0 ng/mL Acetaminophen Level 6.0 L 10.0-20.0 UG/ML Blood Gas Specimen Type Arterial Blood Gas Sample Site Left radial Blood Gas Patient Temperature 37.0 Arterial Blood Date Drawn [id number] Arterial Blood pH 7.476 H 7.350-7.450 Arterial Blood Partial Pressure CO2 19.8 *L 35.0-48.0 mmHg Arterial Blood Partial Pressure O2 69.3 L 83.0-108.0 mmHg Arterial Blood HCO3 14.3 L 21.0-28.0 mmol/L Arterial Blood Oxygen Saturation 93.2 L 94.0-98.0 % Arterial Blood Base Excess -7.1 L -2.0-3.0 mmol/L Arterial Blood Oxyhemoglobin 92.5 L 94.0-98.0 % Arterial Blood Carboxyhemoglobin 0.3 L 0.5-1.5 % Arterial Blood Methemoglobin 0.5 0.0-1.5 % Seven Test Yes Blood Gas Total Hemoglobin 12.60 L 13.5-17.5 g/dL Blood Gas Liter Flow 4.00 Blood Gas Modality Nasal cannula FiO2 % 36.0 Blood Gas Critical Value Read Back Yes Blood Gas Notified Whom Edi avery Blood Gas Notified Time [id number] Blood Gas Notified By Teresa david rrt Prothrombin Time 10.9 9.3-11.8 sec Prothrombin Time INR 1.03 0.9-1.15 Activated Partial Thromboplast Time 29.5 24.5-34.5 SEC Lactate Dehydrogenase 571 H 120-246 U/L Creatine Kinase 83 46-171 U/L Troponin I High Sensitivity 5 </=54 ng/L Test 05/26/25 04:43 05/26/25 04:40 05/26/25 03:15 05/26/25 02:33 Range/Units Lactic Acid Level 2.7 *H 0.4-2.0 mmol/L Influenza Type A Antigen Negative Negative Influenza Type B Antigen Negative Negative SARS-CoV-2 Antigen (Rapid) Negative NEGATIVE Urine Color Yellow Yellow Urine Clarity Ex.turbid Clear Urine pH 5.5 5.0-9.0 Urine Specific [place] 1.018 1.001-1.035 Urine Protein 1+ H Negative Urine Ketones 1+ H Negative Urine Blood 2+ H Negative /uL Urine Nitrite Negative Negative Urine Bilirubin 1+ Negative Urine Urobilinogen 4 H Negative mg/dL Urine Leukocyte Esterase Negative Negative /uL Urine RBC 2 0 - 3 /hpf Urine Microscopic WBC 4 H 0-3 /HPF Urine Squamous Epithelial Cells Few <5 /hpf Urine Amorphous Crystals Few None Seen /hpf Urine Bacteria Few H None Seen /hpf Urine Hyaline Casts Few 0 - 2 /lpf Urine Mucus Few None Seen Urine Glucose 4+ H Normal mg/dL Test 05/26/25 02:26 Range/Units White Blood Count 3.6 L 4.4-10.8 10^3/uL Red Blood Count 4.15 L 4.5-5.90 10^6/uL Hemoglobin 12.6 L 13.5-17.5 g/dL Hematocrit 36.3 L 41.0-53.0 % Mean Corpuscular Volume 87.7 80.0-100.0 fL Mean Corpuscular Hemoglobin 30.4 28.0-32.0 pg Mean Corpuscular Hemoglobin Concent 34.7 32.0-36.0 g/dL Red Cell Distribution Width 13.3 11.8-14.3 % Platelet Count 77 L 140-450 10^3/uL Mean Platelet Volume 8.1 6.9-10.8 fL Neutrophils (%) (Auto) 91.6 H 37.0-80.0 % Lymphocytes (%) (Auto) 3.4 L 10.0-50.0 % Monocytes (%) (Auto) 3.0 0.0-12.0 % Eosinophils (%) (Auto) 1.9 0.0-7.0 % Basophils (%) (Auto) 0.1 0.0-2.0 % Neutrophils # (Auto) 3.3 1.6-8.6 10 ^3/uL Lymphocytes # (Auto) 0.1 L 0.4-5.4 10 ^3/uL Monocytes # (Auto) 0.1 0-1.3 10 ^3/uL Eosinophils # (Auto) 0.1 0-0.8 10 ^3/uL Basophils # (Auto) 0 0-0.2 10 ^3/uL Nucleated Red Blood Cells 0.0 % Sodium Level 130 L 136-145 mmol/L Potassium Level 3.5 3.5-5.1 mmol/L Chloride Level 97 L 98-107 mmol/L Carbon Dioxide Level 19 L 20-31 mmol/L Anion Gap 14 5-15 Blood Urea Nitrogen 32 H 9-23 mg/dL Creatinine 1.30 0.700-1.30 mg/dL Glomerular Filtration Rate Calc 64 >90 mL/min BUN/Creatinine Ratio 24.6 H 10.0-20.0 Serum Glucose 272 H 74-106 mg/dL Calcium Level 7.7 L 8.7-10.4 mg/dL Total Bilirubin 2.8 H 0.2-1.0 mg/dL Aspartate Amino Transferase (AST) 849 H 13-40 U/L Alanine Aminotransferase (ALT) 800 H 7-40 U/L Alkaline Phosphatase 378 H 46-116 U/L Total Protein 5.5 L 5.7-8.2 g/dL Albumin 3.2 3.2-4.8 g/dL Lipase 26 12-53 U/L Microbiology Date/Time Source Procedure Growth Status 05/26/25 02:33 Blood Blood Culture - Preliminary Resulted CT CT AB PEL WITH IV CON ONLY DATE: 05/26/2025 05:47 AM HISTORY: Abdominal pain, elevated LFTs, please measure CBD TECHNIQUE: CT of the chest, abdomen and pelvis is performed with IV contrast. IV Contrast: Omnipaque 300, 100 cc Oral Contrast: No oral contrast was utilized. COMPARISON: None RADIATION DOSE INFORMATION: Automated exposure control dose reduction techniques were used. FINDINGS: Lungs: Stranding chronic appearing changes are suspected in the lung bases. No large consolidation is seen. Mediastinum:Mediastinal structures appear unremarkable. Liver: There is a Large Hypodense Heterogeneous lesion in the posterior aspect of the right lobe measuring 8.3 cm in diameter. The remainder of the liver appears unremarkable. Biliary ducts: There is no evidence of intrahepatic or extrahepatic biliary ductal dilatation. The common bile duct measures about 3 mm. Gallbladder: No abnormality is seen of the gallbladder. Spleen: The spleen is normal in size without focal lesion. Stomach: The stomach appears unremarkable. Pancreas: The pancreas is unremarkable. Adrenal glands: The adrenal glands are unremarkable. Kidneys: The kidneys appear grossly unremarkable. No hydronephrosis is seen. No focal lesions are seen. No renal or ureteral stones are seen. Aorta and IVC: The aorta and IVC are patent and are normal in size. Mesenteric vessels: Major mesenteric vessels appear to be intact. Bowel: The visualized portions of the small and large bowel are normal in caliber. Appendix: The appendix is unremarkable. Pelvis:Pelvic structures appear unremarkable. Lymph nodes: There is no evidence of lymphadenopathy. Osseous structures: The osseous structures are intact. No lytic or blastic osseous lesion is noted. Free fluid/free air: None IMPRESSION: 1. Large hypodense heterogeneous lesion in the posterior aspect of the right lobe of the liver measuring 8.3 cm in diameter. this is of uncertain etiology. The appearance could be consistent with a hepatic abscess. HEPATIC Neoplasm is also concern. 2. Further evaluation with MRI of the liver with and without contrast is recommended. Assessment Patient is septic with CT findings of liver mass/abscess. Elevated liver enzymes. NPO Aggressive hydration IV antibiotics Consult IR for evaluation of hepatic abscess Plan/Recommendation Patient is septic with CT findings of liver mass/abscess. Elevated liver enzym es. NPO Aggressive hydration IV antibiotics Consult IR for evaluation of hepatic abscess Plan discussed with: Patient PAT MARQUEZ Jr., MD May 26, 2025 18:49
[2025-05-26 19:15] VITALS: PULSE 135; RESP 40; O2SAT 90
[2025-05-26] MEDS: IPRATROPIUM BROM 0.5 MG/2.5ML INH SOL NEB SCH (19:15)
[2025-05-26] MEDS: LEVALBUTEROL HCL 1.25 MG/3 ML NEB NEB SCH (19:16)
[2025-05-26 19:23] VITALS: PULSE 132; RESP 33; O2SAT 95
[2025-05-26 20:00] VITALS: O2SAT 95
[2025-05-27] VITALS (11 sets, daily range): BP systolic 136; BP diastolic 91; PULSE 109–120; RESP 20–41; TEMP 98.2; O2SAT 90–99
[2025-05-27 06:45] LABS: Hematocrit 32.9 % (41.0-53.0); Hemoglobin 11.5 g/dL (13.5-17.5); Mean Corpuscular Hemoglobin 30.6 pg (28.0-32.0); Mean Corpuscular Volume 87.3 fL (80.0-100.0); Nucleated Red Blood Cells % 0.0 %
[2025-05-27 07:00] LABS: Anion Gap 16 (5-15); BUN/Creatinine Ratio 20.7 (10.0-20.0); Sodium 142 mmol/L (136-145)
[2025-05-27 07:05] LABS: Alanine Aminotransferase 760 U/L (7-40); Albumin 3.0 g/dL (3.2-4.8); Alkaline Phosphatase 394 U/L (46-116); Bilirubin, Total 4.1 mg/dL (0.2-1.0); Blood Urea Nitrogen 25 mg/dL (9-23); Calcium 7.6 mg/dL (8.7-10.4); Carbon Dioxide 17 mmol/L (20-31); Chloride 109 mmol/L (98-107); Glucose 143 mg/dL (74-106); Potassium 3.3 mmol/L (3.5-5.1); Total Protein 5.5 g/dL (5.7-8.2)
[2025-05-27] MEDS: PANTOPRAZOLE 40 MG/10 ML VIAL INJ IV SCH (10:15)
[2025-05-27] MEDS: GADOTERATE MEG 10 MMOL/20ml INJ (0.5MMOL/ml) IV ONE (12:16)
[2025-05-27 12:32] LABS: Hepatitis A Total Antibody Positive (Negative)
[2025-05-27 12:33] LABS: Hepatitis B Surface Antigen Negative (Negative); Hepatitis C Antibody Negative (Negative)
--- NOTE | 2025-05-27 13:22 | DVH ---
EXAM: MRI MRI ABDOMEN W AND WO HISTORY: Liver protocol COMPARISON: US ABDOMEN COMPLETE SONOGRAM on DOS: 05/26/25 TECHNIQUE: Multiplanar, multisequence imaging of the abdomen was performed with and without contrast. FINDINGS: [LOWER CHEST]: Small bilateral pleural effusions. Atelectasis in bilateral lung bases [LIVER]: In regards to the clinical question, irregular oval-shaped masslike process with intermixed areas of low T2 in high T2 intensity areas of diffusion restriction predominantly of the periphery best appreciated along ADC series 8. Significant predominant peripheral marginal enhancement multiple intervening hepatic vasculature on postcontrast imaging. [SPLEEN]: Unremarkable. [PANCREAS]: The pancreas is normal in appearance without focal lesions. Normal pancreatic duct size. [GALLBLADDER AND DUCTS]: Gallbladder is normal in appearance. The cystic duct, right and left hepatic ducts, common hepatic duct, and common bile ducts are unremarkable. [ADRENAL GLANDS]: Unremarkable. [KIDNEYS]: Normal enhancement without suspicious lesions or hydronephrosis. [VISUALIZED BOWEL]: Grossly unremarkable. [VASCULATURE]: Unremarkable. [LYMPHADENOPATHY]: No evidence for lymphadenopathy. [ASCITES]: Absent. [MUSCULOSKELETAL]: Bone marrow signal is normal. [OTHER]: None IMPRESSION: 1. In regards to the clinical question, right hepatic mass versus abscess demonstrating intermixed T2 signal, predominant peripheral enhancement with peripheral diffusion restriction and overall imaging pattern may be compatible primarily with a hepatic abscess. 2. However, recommend appropriate tissue sampling to exclude superimposed malignancy with the appropriate sampling of the peripheral margin given the central areas largely nonenhancing. 3. Bilateral pleural effusions with atelectasis 4. No measurable lymphadenopathy
--- NOTE | 2025-05-27 15:35 | DVHPN2 ---
Progress Note Date Seen: May 27, 2025 Medical Necessity Reason Pt with a Central, PICC or Fol: No Objective vital signs Vital Sign Date Time Temp Pulse Resp B/P (MAP) Pulse Ox O2 Delivery O2 Flow Rate FiO2 05/27/25 13:25 110 28 99 05/27/25 13:15 Nasal Cannula 4.0 05/27/25 13:15 36 05/27/25 13:00 99.1 122/83 (96) 99.1 Total Intake and Output 05/26/25 05/26/25 05/27/25 15:00 23:00 07:00 Intake Total 1000 ml 434 ml Output Total 750 ml Balance 1000 ml -316 ml medications Current Medications Medications Dose Ordered Sig/Sung Route Start Time Stop Time Status Last Admin Dose Admin Vancomycin HCl 0 ml @ 0 mls/hr PER PHARMACY IV 05/26/25 03:30 Acetaminophen/ Hydrocodone Bitart 1 tab Q4HP PRN PO 05/26/25 11:45 Hold Ondansetron HCl 4 mg Q4HP PRN IV 05/26/25 11:45 Docusate Sodium 100 mg BIDPRN PRN PO 05/26/25 11:45 Acetaminophen 650 mg Q6HP PRN PO 05/26/25 11:45 Hold Morphine Sulfate 2 mg Q4HPRN PRN IV 05/26/25 11:45 Nitroglycerin 0.4 mg Q5MINP PRN SL 05/26/25 11:45 Morphine Sulfate 2 mg Q30M PRN IV 05/26/25 11:45 Diagnostic Test (Pha) 1 strip Q6HR 05/26/25 12:00 05/27/25 12:08 1 STRIP Insulin Human Regular Q6HR SC 05/26/25 12:00 05/27/25 12:15 2 UNITS Dextrose 50 ml UD PRN IV 05/26/25 11:45 Ipratropium [place] 0.5 mg Q6HWA NEB 05/26/25 18:00 05/27/25 13:15 0.5 MG Levalbuterol HCl 1.25 mg Q6HR NEB 05/26/25 18:00 05/27/25 13:15 1.25 MG Meropenem 50 ml @ 17 mls/hr Q8HR IV 05/26/25 14:00 05/27/25 13:43 17 MLS/HR Pantoprazole Sodium 40 mg DAILY IV 05/27/25 10:00 05/27/25 10:15 40 MG Vancomycin HCl 100 ml @ 100 mls/hr Q14H IV 05/26/25 18:00 05/27/25 08:08 100 MLS/HR Sodium Chloride 1,000 ml @ 100 mls/hr Q10H IV 05/26/25 22:45 05/27/25 08:11 100 MLS/HR laboratory and microbiology Laboratory Tests 05/27/25 05:36 Test 05/27/25 05:36 Range/Units Serum Glucose 143 #H 74-106 mg/dL Problem List/Assessment/Plan Problem List/Assessment/Plan 4year old male with abdominal pain(previously "checked" for the pain about two months ago now with a probable abscess in the right lobe of the liver, will ask radiology to aspirate, abdomen soft, non distended slightly tender in the RUQ Plan discussed with: Patient, Son MARY MEJIA MD May 27, 2025 15:35
[2025-05-27] MEDS: SOD CHL 0.9%/ KCL 20MEQ 1,000 ML IV SCH (16:06)
--- NOTE | 2025-05-27 16:14 | DVHPN2 ---
Progress Note Date Seen: May 27, 2025 Resident Creating Document: ASHLYN REBOLLAR RESIDENT Medical Necessity Reason Pt with a Central, PICC or Fol: No Subjective Review of Systems 54-year-old male with no past medical history, does not follow up physician presented to the ER with a chief complaint of fever, chills, abdominal pain for the past 10 days. 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 Patient had a bowel movement earlier today. He reports that he went to [facility] for a complete checkup 2 months back which was unremarkable and a EGD was performed which was also unremarkable at the time patient does not have the reports available. No history of colonoscopy. Patient has reported he was taking 4-5 tablets every day of Tylenol 500 mg for the past 4 days Also reports having a rash on abdomen and the site of the bite chester on the left tee which resolved Past medical history: Denies past surgical history: Denies Medications: Denies Social history: Quit smoking 3 years back, former heavy smoker 1 pack a day for the past 20 years. Denies drinking or drug use Social history continued: Lives alone, has kids. 05/26-Patient seen and examined. He is febrile, tachycardic. Right upper quadrant tenderness. Radiologist consulted. 05/27-patient underwent MRI abdomen with and without which shows In regards to the clinical question, right hepatic mass versus abscess demonstrating intermixed T2 signal, predominant peripheral enhancement with peripheral diffusion restriction and overall imaging pattern may be compatible primarily with a hepatic abscess. However, recommend appropriate tissue sampling to exclude superimposed malignancy with the appropriate sampling of the peripheral margin given the central areas largely nonenhancing. WBC count improved, hemoglobin stable. Platelet trending down. LFTs worsening. Objective vital signs Vital Sign Date Time Temp Pulse Resp B/P (MAP) Pulse Ox O2 Delivery O2 Flow Rate FiO2 05/27/25 13:25 110 28 99 05/27/25 13:15 Nasal Cannula 4.0 05/27/25 13:15 36 05/27/25 13:00 99.1 122/83 (96) 99.1 Total Intake and Output 05/26/25 05/26/25 05/27/25 15:00 23:00 07:00 Intake Total 1000 ml 434 ml Output Total 750 ml Balance 1000 ml -316 ml medications Current Medications Medications Dose Ordered Sig/Sung Route Start Time Stop Time Status Last Admin Dose Admin Vancomycin HCl 0 ml @ 0 mls/hr PER PHARMACY IV 05/26/25 03:30 Acetaminophen/ Hydrocodone Bitart 1 tab Q4HP PRN PO 05/26/25 11:45 Hold Ondansetron HCl 4 mg Q4HP PRN IV 05/26/25 11:45 Docusate Sodium 100 mg BIDPRN PRN PO 05/26/25 11:45 Acetaminophen 650 mg Q6HP PRN PO 05/26/25 11:45 Hold Morphine Sulfate 2 mg Q4HPRN PRN IV 05/26/25 11:45 Nitroglycerin 0.4 mg Q5MINP PRN SL 05/26/25 11:45 Morphine Sulfate 2 mg Q30M PRN IV 05/26/25 11:45 Diagnostic Test (Pha) 1 strip Q6HR 05/26/25 12:00 05/27/25 12:08 1 STRIP Insulin Human Regular Q6HR SC 05/26/25 12:00 05/27/25 12:15 2 UNITS Dextrose 50 ml UD PRN IV 05/26/25 11:45 Ipratropium [place] 0.5 mg Q6HWA NEB 05/26/25 18:00 05/27/25 13:15 0.5 MG Levalbuterol HCl 1.25 mg Q6HR NEB 05/26/25 18:00 05/27/25 13:15 1.25 MG Meropenem 50 ml @ 17 mls/hr Q8HR IV 05/26/25 14:00 05/27/25 13:43 17 MLS/HR Pantoprazole Sodium 40 mg DAILY IV 05/27/25 10:00 05/27/25 10:15 40 MG Vancomycin HCl 100 ml @ 100 mls/hr Q14H IV 05/26/25 18:00 05/27/25 08:08 100 MLS/HR Metronidazole 100 ml @ 100 mls/hr Q8HR IV 05/27/25 15:57 Potassium Chloride/Sodium Chloride 1,000 ml @ 100 mls/hr Q10H IV 05/27/25 15:30 Examination Young male patient lying in the bed, mild acute distress General: Well-built, low-grade fever, palor, mucosae are moist Cardiovascular: Tachycardia but regular S1 and S2. No murmurs, gallops or rubs. No JVD elevation. No pedal edema Respiratory: Normal B/L air entry on room air. Clear lung sounds on auscultation Abdomen: Soft, right lower quadrant tenderness, nondistended, hypoactive bowel sounds, no rebound tenderness, no organomegaly, no masses Genitourinary: Deferred MSK/skin: Mobilizes 4 limbs. Skin is dry and warm per, bite chester left tee Neurological: No motor, no sensitive deficits, normal speech. Pupils are isocoric and reactive. Psych/Mental Status: A/Ox3 laboratory and microbiology Laboratory Tests 05/27/25 05:36 Test 05/27/25 05:36 Range/Units Serum Glucose 143 #H 74-106 mg/dL Microbiology Date/Time Source Procedure Growth Status 05/26/25 03:15 Voided Urine Urine Culture - Preliminary No growth Resulted 05/26/25 02:33 Blood Blood Culture - Preliminary Resulted Labs and/or images reviewed: Labs reviewed by me, Image(s) reviewed by me Problem List/Assessment/Plan Problem List/Assessment/Plan Sepsis likely secondary to hepatic abscess Transaminitis likely secondary to above ? Tylenol toxicity Anemia likely normocytic chronic disease Acute kidney injury Lactic acidosis Secondary hypercoagulable [id number] 4.8 Prelim blood culture negative CT abdomen shows Large hypodense heterogeneous lesion in the posterior aspect of the right lobe of the liver measuring 8.3 cm in diameter. this is of uncertain etiology. The appearance could be consistent with a hepatic abscess. HEPATIC Neoplasm is also concern. Plan/Recommendation MRI abdomen which shows In regards to the clinical question, right hepatic mass versus abscess demonstrating intermixed T2 signal, predominant peripheral enhancement with peripheral diffusion restriction and overall imaging pattern may be compatible primarily with a hepatic abscess. However, recommend appropriate tissue sampling to exclude superimposed malignancy with the appropriate sampling of the peripheral margin given the central areas largely nonenhancing. Radiology consultation for aspiration versus I&D versus liver biopsy Liver function tests worsening Low-grade fevers Recommend IV antibiotics, maintenance IV fluids No bowel movements. Continue stool studies for ova and parasites, stool culture, stool WBC Hepatitis panel unremarkable acetaminophen levels unremarkable,, CK levels WNL, LDH 571 Follow up with tumor markers We will continue to follow up Thank you for consulting GI Plan discussed with the patient in which all questions have been answered Case discussed with Dr. Muñoz Plan discussed with: Patient ASHLYN REBOLLAR RESIDENT May 27, 2025 16:14
--- NOTE | 2025-05-27 16:41 | DVHPN2 ---
Subjective Continue to report RUQ pain Reviewed: Care Plan Changes from previous H/P or p: No Changes Eyes: No Pain, No Vision change, No Conjunctivae inflammation, No Eyelid inflammation, No Other, No Redness ENT: No Ear pain, No Ear discharge, No Nose pain, No Nose discharge, No Nose congestion, No Mouth pain, No Mouth swelling, No Throat pain, No Throat swelling, No Other Cardiovascular: No Chest Pain, No Palpitations, No Orthopnea, No Paroxysmal Noc. Dyspnea, No Edema, No Lt Headedness, No Other Respiratory: No Cough, No Dry, No Shortness of breath, No SOB with excertion, No Wheezing, No Hemoptysis, No Pleuritic Pain, No Sputum, No Other Gastrointestinal: No Nausea, No Vomiting; Abdominal Pain; No Diarrhea, No Constipation, No Melena, No Hematochezia, No Other Genitourinary: No Dysuria, No Frequency, No Incontinence, No Hematuria, No Retention, No Other Musculoskeletal: No other, No neck pain, No shoulder pain, No arm pain, No back pain, No hand pain, No leg pain, No foot pain Skin: No Rash, No Lesions, No Jaundice, No Bruising, No Other Objective Vitals Vital Signs Date Time Temp Pulse Resp B/P (MAP) Pulse Ox O2 Delivery O2 Flow Rate FiO2 05/27/25 13:25 110 28 99 05/27/25 13:15 Nasal Cannula 4.0 05/27/25 13:15 36 05/27/25 13:00 99.1 122/83 (96) 99.1 Intake/Output Intake and Output 05/27/25 07:00 Intake Total 1434 ml Output Total 750 ml Balance 684 ml Intake IV Total 1434 ml Output Urine Total 750 ml # Voids 1 General Appearance: Alert, Oriented X3, Cooperative, mild distress HEENT: Atraumatic, PERRLA Lungs: Clear to auscultation, Normal air movement Cardiovascular: Normal S1, Normal S2 Abdomen: Normal bowel sounds, Soft, No tenderness Musculoskeletal: Normal sensory function, Normal motor function Skin: Dry, Intact Psych/Mental Status: Mental status NL, Mood NL Medications Current Medications Medications Dose Ordered Sig/Sung Route Start Time Stop Time Status Last Admin Dose Admin Vancomycin HCl 0 ml @ 0 mls/hr PER PHARMACY IV 05/26/25 03:30 Acetaminophen/ Hydrocodone Bitart 1 tab Q4HP PRN PO 05/26/25 11:45 Hold Ondansetron HCl 4 mg Q4HP PRN IV 05/26/25 11:45 Docusate Sodium 100 mg BIDPRN PRN PO 05/26/25 11:45 Acetaminophen 650 mg Q6HP PRN PO 05/26/25 11:45 Hold Morphine Sulfate 2 mg Q4HPRN PRN IV 05/26/25 11:45 Nitroglycerin 0.4 mg Q5MINP PRN SL 05/26/25 11:45 Morphine Sulfate 2 mg Q30M PRN IV 05/26/25 11:45 Diagnostic Test (Pha) 1 strip Q6HR 05/26/25 12:00 05/27/25 12:08 1 STRIP Insulin Human Regular Q6HR SC 05/26/25 12:00 05/27/25 12:15 2 UNITS Dextrose 50 ml UD PRN IV 05/26/25 11:45 Ipratropium [place] 0.5 mg Q6HWA NEB 05/26/25 18:00 05/27/25 13:15 0.5 MG Levalbuterol HCl 1.25 mg Q6HR NEB 05/26/25 18:00 05/27/25 13:15 1.25 MG Meropenem 50 ml @ 17 mls/hr Q8HR IV 05/26/25 14:00 05/27/25 13:43 17 MLS/HR Pantoprazole Sodium 40 mg DAILY IV 05/27/25 10:00 05/27/25 10:15 40 MG Vancomycin HCl 100 ml @ 100 mls/hr Q14H IV 05/26/25 18:00 05/27/25 08:08 100 MLS/HR Metronidazole 100 ml @ 100 mls/hr Q8HR IV 05/27/25 15:57 05/27/25 16:06 100 MLS/HR Potassium Chloride/Sodium Chloride 1,000 ml @ 100 mls/hr Q10H IV 05/27/25 15:30 05/27/25 16:06 100 MLS/HR Laboratory Results Laboratory Tests 05/27/25 05:36 Chemistry Test 05/27/25 05:36 Albumin 3.0 g/dL (3.2-4.8) L Calcium Level 7.6 mg/dL (8.7-10.4) L Total Protein 5.5 g/dL (5.7-8.2) L LFT Test 05/27/25 05:36 Alanine Aminotransferase (ALT) 760 U/L (7-40) H Alkaline Phosphatase 394 U/L (46-116) H Aspartate Amino Transferase (AST) 1234 U/L (13-40) H Total Bilirubin 4.1 mg/dL (0.2-1.0) H HgA1c, TSH Test 05/27/25 05:36 Hemoglobin A1c 7.5 % A1C (<5.7) H Urinalysis Test 05/26/25 03:15 Urine Color Yellow (Yellow) Urine Clarity Ex.turbid (Clear) Urine pH 5.5 (5.0-9.0) Urine Specific [place] 1.018 (1.001-1.035) Urine Protein 1+ (Negative) H Urine Ketones 1+ (Negative) H Urine Blood 2+ /uL (Negative) H Urine Nitrite Negative (Negative) Urine Bilirubin 1+ (Negative) Urine Urobilinogen 4 mg/dL (Negative) H Urine Leukocyte Esterase Negative /uL (Negative) Urine RBC 2 /hpf (0 - 3) Urine Microscopic WBC 4 /HPF (0-3) H Urine Squamous Epithelial Cells Few /hpf (<5) Urine Amorphous Crystals Few /hpf (None Seen) Urine Bacteria Few /hpf (None Seen) H Urine Hyaline Casts Few /lpf (0 - 2) Urine Mucus Few (None Seen) Urine Glucose 4+ mg/dL (Normal) H Microbiology Microbiology Date/Time Source Procedure Growth Status 05/26/25 03:15 Voided Urine Urine Culture - Preliminary No growth Resulted 05/26/25 02:33 Blood Blood Culture - Preliminary Resulted Labs and/or images reviewed: Labs reviewed by me, Image(s) reviewed by me Assessment/Plan Assessment/Plan Impression: -Sepsis -Liver abscess -DM -Hepatitis A -Bilateral pna -Acute Hypoxic Respiratory Failure Plan: -Liver MRI: impression of abscess -Consults: Surgery, GI, IR for possible abscess drain -Abx: continue vancomycin, meropenem, add flagyl -IVF with KCL -PPI -NPO -Repeat CMP in am -Transfer to Telemetry floor Total time 35 Plan discussed with: Patient, Other (RN) My Orders Orders - BRODY CARPENTER SMASH HAND Procedure Category Date Status Time Metronidazole PHA 11/19/25 In Process 500mg/100ml (Flagyl 15:57 Sod Chl 0.9%/ Kcl PHA 05/27/25 In Process 20meq 15:30 Comprehensive LAB 05/28/25 Verified Metabolic Panel 05:00 Comprehensive LAB 05/29/25 Verified Metabolic Panel 05:00 Comprehensive LAB 05/30/25 Verified Metabolic Panel 05:00 Complete Blood Count LAB 05/28/25 Verified 05:00 Complete Blood Count LAB 05/29/25 Verified 05:00 Complete Blood Count LAB 05/30/25 Verified 05:00 Transfer Orders XFER 05/27/25 Transmitted 16:28 Date of Service: May 27, 2025 Billing Provider: BRODY CARPENTER NP Common Visit Codes: [id number] INP/OBS CARE(HIGH) BRODY CARPENTER NP May 27, 2025 16:41
--- NOTE | 2025-05-27 17:36 | DVHSR ---
APPROVED REPORT EXAM: Two-dimensional and M-mode echocardiogram with Doppler and color Doppler. INDICATION Elevated D-Dimer RISK FACTORS Height: 63, Weight: 130 DIMENSIONS LVDd 3.6 (3.8-5.7cm) LA (2D) 3.6 (1.9-4.0cm) Aortic Root 3.2 (2.0-3.7cm) LVDs 2.5 (2.5-4.0cm) LA (MM) (1.9-4.0cm) Aortic Cusp Exc 1.1 (1.5-2.0cm) EF (%) 60.0 (55-70%) Rt. Atrium 3.6 (1.9-4.0cm) Asc. Aorta 3.1 cm IVSd 1.1 (0.7-1.1cm) RV (D) (1.8-2.4cm) PWd 1.4 (0.7-1.1cm) Mitral Valve Mitral Mitral Stenosis E wave 0.80m/s MV Mean GR. mmHg A wave 0.89m/s MV Peak GR. mmHg E/A ratio 0.9 2D MVA cm2 DECEL Time 137ms PRESS 1/2 Time ms Aortic Valve Aortic Valve Aortic Stenosis V1 1.05m/s AO Mean GR. 6mmHg V2 1.57m/s AO Peak GR. 10mmHg LVOT Diameter 2.0 (1.8-2.4cm) Doppler EMILY 2.10cm2 AI P 1/2 Time 388.40ms Pulmonic Valve V2 0.63m/s Tricuspid Valve TR Velocity 2.90m/s RVSP 42mmHg Conclusion Sinus rhythm. Concentric LVH with mild left atrial enlargement. Mild aortic root enlargement. There is thickening of the right coronary cusp commissure along with the non coronary cusp. Adequate excursion of the leaflets noted. The mitral and tricuspid are structurally normal. Left ventricular function is preserved at 55% with normal RV function. Trace aortic insufficiency with mild tricuspid regurgitation. Trace pulmonic insufficiency. Moderate tricuspid regurgitation with a right ventricular systolic pressure of42 mmHg. Phng-np-hthaatym pulmonary hypertension noted. No pericardial effusion masses or vegetations discernible.
[2025-05-28] VITALS (14 sets, daily range): BP systolic 120–138; BP diastolic 83–93; PULSE 65–114; RESP 14–20; TEMP 96.7–98.6; O2SAT 95–100
[2025-05-28 06:54] LABS: Anion Gap 16 (5-15); BUN/Creatinine Ratio 27.6 (10.0-20.0); Total Protein 5.7 g/dL (5.7-8.2)
[2025-05-28 07:09] LABS: Alanine Aminotransferase 541 U/L (7-40); Albumin 3.1 g/dL (3.2-4.8); Alkaline Phosphatase 380 U/L (46-116); Bilirubin, Total 3.2 mg/dL (0.2-1.0); Blood Urea Nitrogen 24 mg/dL (9-23); Calcium 7.6 mg/dL (8.7-10.4); Carbon Dioxide 18 mmol/L (20-31); Chloride 114 mmol/L (98-107); Glucose 189 mg/dL (74-106); Potassium 3.3 mmol/L (3.5-5.1); Sodium 148 mmol/L (136-145)
[2025-05-28 07:26] LABS: Mean Corpuscular Volume 88.5 fL (80.0-100.0); Nucleated Red Blood Cells % 0.1 %
[2025-05-28 07:28] LABS: Hematocrit 37.3 % (41.0-53.0); Hemoglobin 12.9 g/dL (13.5-17.5); Mean Corpuscular Hemoglobin 30.7 pg (28.0-32.0)
[2025-05-28] MEDS: POTASSIUM CHLORIDE 40 MEQ in SOD CHL 0.45% 1,000 ML IV SCH (08:45)
[2025-05-28] MEDS: POTASSIUM CHL 20MEQ/100ML 100 ML IV SCH (09:40)
--- NOTE | 2025-05-28 09:45 | DVHPN2 ---
Subjective Patient states he has RUQ pain. Reviewed: Care Plan, H&P, Labs, Medications, Previous Orders Changes from previous H/P or p: No Changes General: Per HPI Eyes: No Pain, No Vision change, No Conjunctivae inflammation, No Eyelid inflammation, No Other, No Redness ENT: No Ear pain, No Ear discharge, No Nose pain, No Nose discharge, No Nose congestion, No Mouth pain, No Mouth swelling, No Throat pain, No Throat swelling, No Other Cardiovascular: No Chest Pain, No Palpitations, No Orthopnea, No Paroxysmal Noc. Dyspnea, No Edema, No Lt Headedness, No Other Respiratory: No Cough, No Dry, No Shortness of breath, No SOB with excertion, No Wheezing, No Hemoptysis, No Pleuritic Pain, No Sputum, No Other Gastrointestinal: No Nausea, No Vomiting; Abdominal Pain; No Diarrhea, No Constipation, No Melena, No Hematochezia, No Other Genitourinary: No Dysuria, No Frequency, No Incontinence, No Hematuria, No Retention, No Other Musculoskeletal: No other, No neck pain, No shoulder pain, No arm pain, No back pain, No hand pain, No leg pain, No foot pain Skin: No Rash, No Lesions, No Jaundice, No Bruising, No Other Objective Vitals Vital Signs Date Time Temp Pulse Resp B/P (MAP) Pulse Ox O2 Delivery O2 Flow Rate FiO2 05/28/25 05:00 98.1 100 20 131/86 (101) 98 98.1 05/27/25 21:59 Nasal Cannula* 3 32 Intake/Output Intake and Output 05/28/25 07:00 Intake Total 1500 ml Balance 1500 ml Intake Oral 0 ml IV Total 1500 ml # Voids 2 General Appearance: Alert, Oriented X3, Cooperative, mild distress HEENT: Atraumatic, PERRLA Lungs: Clear to auscultation, Normal air movement Cardiovascular: Normal S1, Normal S2 Abdomen: Normal bowel sounds, Soft, No tenderness Musculoskeletal: Normal sensory function, Normal motor function Skin: Dry, Intact Psych/Mental Status: Mental status NL, Mood NL Medications Current Medications Medications Dose Ordered Sig/Sung Route Start Time Stop Time Status Last Admin Dose Admin Vancomycin HCl 0 ml @ 0 mls/hr PER PHARMACY IV 05/26/25 03:30 Acetaminophen/ Hydrocodone Bitart 1 tab Q4HP PRN PO 05/26/25 11:45 Hold Ondansetron HCl 4 mg Q4HP PRN IV 05/26/25 11:45 Docusate Sodium 100 mg BIDPRN PRN PO 05/26/25 11:45 Acetaminophen 650 mg Q6HP PRN PO 05/26/25 11:45 Hold Morphine Sulfate 2 mg Q4HPRN PRN IV 05/26/25 11:45 Nitroglycerin 0.4 mg Q5MINP PRN SL 05/26/25 11:45 Morphine Sulfate 2 mg Q30M PRN IV 05/26/25 11:45 Diagnostic Test (Pha) 1 strip Q6HR 05/26/25 12:00 05/28/25 06:24 1 STRIP Insulin Human Regular Q6HR SC 05/26/25 12:00 05/28/25 00:14 3 UNITS Dextrose 50 ml UD PRN IV 05/26/25 11:45 Ipratropium [place] 0.5 mg Q6HWA NEB 05/26/25 18:00 05/27/25 19:05 0.5 MG Levalbuterol HCl 1.25 mg Q6HR NEB 05/26/25 18:00 05/28/25 00:11 1.25 MG Meropenem 50 ml @ 17 mls/hr Q8HR IV 05/26/25 14:00 05/28/25 06:24 17 MLS/HR Pantoprazole Sodium 40 mg DAILY IV 05/27/25 10:00 05/28/25 08:56 40 MG Vancomycin HCl 100 ml @ 100 mls/hr Q14H IV 05/26/25 18:00 05/27/25 21:46 100 MLS/HR Metronidazole 100 ml @ 100 mls/hr Q8HR IV 05/27/25 15:57 05/28/25 06:24 100 MLS/HR Potassium Chloride 40 meq/ Sodium Chloride 1,020 ml @ 100 mls/hr [id number] IV 05/28/25 08:45 Potassium Chloride 100 ml @ 50 mls/hr Q2H IV 05/28/25 08:45 05/28/25 12:44 Laboratory Results Laboratory Tests 05/28/25 05:25 Chemistry Test 05/28/25 05:25 Albumin 3.1 g/dL (3.2-4.8) L Calcium Level 7.6 mg/dL (8.7-10.4) L Total Protein 5.7 g/dL (5.7-8.2) Coagulation Test 05/28/25 05:25 Activated Partial Thromboplast Time 24.6 SEC (24.5-34.5) LFT Test 05/28/25 05:25 Alanine Aminotransferase (ALT) 541 U/L (7-40) H Alkaline Phosphatase 380 U/L (46-116) H Aspartate Amino Transferase (AST) 539 U/L (13-40) H Total Bilirubin 3.2 mg/dL (0.2-1.0) H Urinalysis Test 05/26/25 03:15 Urine Color Yellow (Yellow) Urine Clarity Ex.turbid (Clear) Urine pH 5.5 (5.0-9.0) Urine Specific [place] 1.018 (1.001-1.035) Urine Protein 1+ (Negative) H Urine Ketones 1+ (Negative) H Urine Blood 2+ /uL (Negative) H Urine Nitrite Negative (Negative) Urine Bilirubin 1+ (Negative) Urine Urobilinogen 4 mg/dL (Negative) H Urine Leukocyte Esterase Negative /uL (Negative) Urine RBC 2 /hpf (0 - 3) Urine Microscopic WBC 4 /HPF (0-3) H Urine Squamous Epithelial Cells Few /hpf (<5) Urine Amorphous Crystals Few /hpf (None Seen) Urine Bacteria Few /hpf (None Seen) H Urine Hyaline Casts Few /lpf (0 - 2) Urine Mucus Few (None Seen) Urine Glucose 4+ mg/dL (Normal) H Microbiology Microbiology Date/Time Source Procedure Growth Status 05/26/25 03:15 Voided Urine Urine Culture - Preliminary No growth Resulted 05/26/25 02:33 Blood Blood Culture - Final Klebsiella pneumoniae Complete Labs and/or images reviewed: Labs reviewed by me, Image(s) reviewed by me Assessment/Plan Assessment/Plan Impression: -Sepsis -Liver abscess -DM -Hepatitis A -Bilateral pna -Acute Hypoxic Respiratory Failure Plan: -Liver MRI: impression of abscess -Consults: Surgery, GI, IR for possible abscess drain -Abx: continue vancomycin, meropenem, add flagyl -Blood cultures positive for Klebsiella pneumoniae -IVF with KCL -PPI -NPO -Potassium replacement -Repeat labs in am Plan discussed with: Patient, Other (RN) Date of Service: May 28, 2025 Billing Provider: BRODY CARPENTER CHICKEN VACCINATOR Common Visit Codes: [id number] INP/OBS CARE (HIGH) PATRICIA AGUERO STUDENT CHICKEN VACCINATOR May 28, 2025 09:45
--- NOTE | 2025-05-28 11:52 | DVHPN2 ---
Subjective Continue to report RUQ pain Reviewed: Care Plan, H&P, Labs, Medications, Previous Orders Changes from previous H/P or p: No Changes General: Per HPI Eyes: No Pain, No Vision change, No Conjunctivae inflammation, No Eyelid inflammation, No Other, No Redness ENT: No Ear pain, No Ear discharge, No Nose pain, No Nose discharge, No Nose congestion, No Mouth pain, No Mouth swelling, No Throat pain, No Throat swelling, No Other Cardiovascular: No Chest Pain, No Palpitations, No Orthopnea, No Paroxysmal Noc. Dyspnea, No Edema, No Lt Headedness, No Other Respiratory: No Cough, No Dry, No Shortness of breath, No SOB with excertion, No Wheezing, No Hemoptysis, No Pleuritic Pain, No Sputum, No Other Gastrointestinal: No Nausea, No Vomiting; Abdominal Pain; No Diarrhea, No Constipation, No Melena, No Hematochezia, No Other Genitourinary: No Dysuria, No Frequency, No Incontinence, No Hematuria, No Retention, No Other Musculoskeletal: No other, No neck pain, No shoulder pain, No arm pain, No back pain, No hand pain, No leg pain, No foot pain Skin: No Rash, No Lesions, No Jaundice, No Bruising, No Other Objective Vitals Vital Signs Date Time Temp Pulse Resp B/P (MAP) Pulse Ox O2 Delivery O2 Flow Rate FiO2 05/28/25 09:00 98.2 98 18 138/93 (108) 98 98.2 05/27/25 21:59 Nasal Cannula* 3 32 Intake/Output Intake and Output 05/28/25 07:00 Intake Total 1500 ml Balance 1500 ml Intake Oral 0 ml IV Total 1500 ml # Voids 2 General Appearance: Alert, Oriented X3, Cooperative, mild distress HEENT: Atraumatic, PERRLA Lungs: Clear to auscultation, Normal air movement Cardiovascular: Normal S1, Normal S2 Abdomen: Normal bowel sounds, Soft, No tenderness Musculoskeletal: Normal sensory function, Normal motor function Skin: Dry, Intact Psych/Mental Status: Mental status NL, Mood NL Medications Current Medications Medications Dose Ordered Sig/Sung Route Start Time Stop Time Status Last Admin Dose Admin Vancomycin HCl 0 ml @ 0 mls/hr PER PHARMACY IV 05/26/25 03:30 Acetaminophen/ Hydrocodone Bitart 1 tab Q4HP PRN PO 05/26/25 11:45 Hold Ondansetron HCl 4 mg Q4HP PRN IV 05/26/25 11:45 Docusate Sodium 100 mg BIDPRN PRN PO 05/26/25 11:45 Acetaminophen 650 mg Q6HP PRN PO 05/26/25 11:45 Hold Morphine Sulfate 2 mg Q4HPRN PRN IV 05/26/25 11:45 Nitroglycerin 0.4 mg Q5MINP PRN SL 05/26/25 11:45 Morphine Sulfate 2 mg Q30M PRN IV 05/26/25 11:45 Diagnostic Test (Pha) 1 strip Q6HR 05/26/25 12:00 05/28/25 06:24 1 STRIP Insulin Human Regular Q6HR SC 05/26/25 12:00 05/28/25 00:14 3 UNITS Dextrose 50 ml UD PRN IV 05/26/25 11:45 Ipratropium [place] 0.5 mg Q6HWA NEB 05/26/25 18:00 05/27/25 19:05 0.5 MG Levalbuterol HCl 1.25 mg Q6HR NEB 05/26/25 18:00 05/28/25 00:11 1.25 MG Meropenem 50 ml @ 17 mls/hr Q8HR IV 05/26/25 14:00 05/28/25 06:24 17 MLS/HR Pantoprazole Sodium 40 mg DAILY IV 05/27/25 10:00 05/28/25 08:56 40 MG Vancomycin HCl 100 ml @ 100 mls/hr Q14H IV 05/26/25 18:00 05/27/25 21:46 100 MLS/HR Metronidazole 100 ml @ 100 mls/hr Q8HR IV 05/27/25 15:57 05/28/25 06:24 100 MLS/HR Potassium Chloride 40 meq/ Sodium Chloride 1,020 ml @ 100 mls/hr [id number] IV 05/28/25 08:45 Potassium Chloride 100 ml @ 50 mls/hr Q2H IV 05/28/25 08:45 05/28/25 12:44 05/28/25 10:45 50 MLS/HR Laboratory Results Laboratory Tests 05/28/25 05:25 Chemistry Test 05/28/25 05:25 Albumin 3.1 g/dL (3.2-4.8) L Calcium Level 7.6 mg/dL (8.7-10.4) L Total Protein 5.7 g/dL (5.7-8.2) Coagulation Test 05/28/25 05:25 Activated Partial Thromboplast Time 24.6 SEC (24.5-34.5) LFT Test 05/28/25 05:25 Alanine Aminotransferase (ALT) 541 U/L (7-40) H Alkaline Phosphatase 380 U/L (46-116) H Aspartate Amino Transferase (AST) 539 U/L (13-40) H Total Bilirubin 3.2 mg/dL (0.2-1.0) H Urinalysis Test 05/26/25 03:15 Urine Color Yellow (Yellow) Urine Clarity Ex.turbid (Clear) Urine pH 5.5 (5.0-9.0) Urine Specific [place] 1.018 (1.001-1.035) Urine Protein 1+ (Negative) H Urine Ketones 1+ (Negative) H Urine Blood 2+ /uL (Negative) H Urine Nitrite Negative (Negative) Urine Bilirubin 1+ (Negative) Urine Urobilinogen 4 mg/dL (Negative) H Urine Leukocyte Esterase Negative /uL (Negative) Urine RBC 2 /hpf (0 - 3) Urine Microscopic WBC 4 /HPF (0-3) H Urine Squamous Epithelial Cells Few /hpf (<5) Urine Amorphous Crystals Few /hpf (None Seen) Urine Bacteria Few /hpf (None Seen) H Urine Hyaline Casts Few /lpf (0 - 2) Urine Mucus Few (None Seen) Urine Glucose 4+ mg/dL (Normal) H Microbiology Microbiology Date/Time Source Procedure Growth Status 05/26/25 03:15 Voided Urine Urine Culture - Preliminary No growth Resulted 05/26/25 02:33 Blood Blood Culture - Final Klebsiella pneumoniae Complete Labs and/or images reviewed: Labs reviewed by me, Image(s) reviewed by me Assessment/Plan Assessment/Plan Impression: -Sepsis -Liver abscess -DM -Hepatitis A -Bilateral pna -Acute Hypoxic Respiratory Failure -hypokalemia Plan: Events: Awaiting IR drainage of liver abscess -Liver MRI: impression of abscess -Consults: Surgery, GI, IR for possible abscess drain -Abx: continue vancomycin, meropenem, add flagyl -IVF with KCL -PPI -NPO -Repeat CMP in am Total time spent with patient discussing and formulating plan of care: 35 minutes. This medical document was created using an electronic medical record system with [employer] dictation system. Although this document has been carefully reviewed, there may still be some phonetic and typographical errors. These areas are purely typographical due to imperfections of the software programs, and do not reflect any compromise in the patient's medical care. Plan discussed with: Patient, Other (RN) My Orders Orders - BRODY CARPENTER NP Procedure Category Date Status Time Metronidazole PHA 05/27/25 In Process 500mg/100ml (Flagyl 15:57 Comprehensive LAB 05/29/25 Verified Metabolic Panel 05:00 Comprehensive LAB 05/30/25 Verified Metabolic Panel 05:00 Complete Blood Count LAB 05/29/25 Verified 05:00 Complete Blood Count LAB 05/30/25 Verified 05:00 Transfer Orders XFER 05/27/25 Transmitted 16:28 Sod Chl 0.45% PHA 05/28/25 In Process (Sodi... W/Potassium 08:45 Potassium Chl PHA 05/28/25 In Process 20meq/100ml 08:45 Complete Blood Count LAB 05/29/25 Verified 04:00 Comprehensive LAB 05/29/25 Verified Metabolic Panel 04:00 Date of Service: May 28, 2025 Billing Provider: BRODY CARPENTER NP Common Visit Codes: [id number] INP/OBS CARE(HIGH) BRODY CARPENTER NP May 28, 2025 11:52
--- NOTE | 2025-05-28 11:59 | DVHPN2 ---
Progress Note Date Seen: May 28, 2025 Resident Creating Document: ASHLYN REBOLLAR RESIDENT Medical Necessity Reason Pt with a Central, PICC or Fol: No Subjective Review of Systems 54-year-old male with no past medical history, does not follow up physician presented to the ER with a chief complaint of fever, chills, abdominal pain for the past 10 days. 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 Patient had a bowel movement earlier today. He reports that he went to [facility] for a complete checkup 2 months back which was unremarkable and a EGD was performed which was also unremarkable at the time patient does not have the reports available. No history of colonoscopy. Patient has reported he was taking 4-5 tablets every day of Tylenol 500 mg for the past 4 days Also reports having a rash on abdomen and the site of the bite chester on the left tee which resolved Past medical history: Denies past surgical history: Denies Medications: Denies Social history: Quit smoking 3 years back, former heavy smoker 1 pack a day for the past 20 years. Denies drinking or drug use Social history continued: Lives alone, has kids. 05/26-Patient seen and examined. He is febrile, tachycardic. Right upper quadrant tenderness. Radiologist consulted. 05/27-patient underwent MRI abdomen with and without which shows In regards to the clinical question, right hepatic mass versus abscess demonstrating intermixed T2 signal, predominant peripheral enhancement with peripheral diffusion restriction and overall imaging pattern may be compatible primarily with a hepatic abscess. However, recommend appropriate tissue sampling to exclude superimposed malignancy with the appropriate sampling of the peripheral margin given the central areas largely nonenhancing. WBC count improved, hemoglobin stable. Platelet trending down. LFTs worsening. 05/28-patient reports abdominal pain. Per [facility] ER doctor, radiologist plans to do liver biopsy, given that patient received platelets. Two platelets units ordered. Had 2 bowel movements overnight. Objective vital signs Vital Sign Date Time Temp Pulse Resp B/P (MAP) Pulse Ox O2 Delivery O2 Flow Rate FiO2 05/28/25 09:00 98.2 98 18 138/93 (108) 98 98.2 05/27/25 21:59 Nasal Cannula* 3 32 Total Intake and Output 05/27/25 05/27/25 05/28/25 15:00 23:00 07:00 Intake Total 1150 ml 350 ml 0 ml Balance 1150 ml 350 ml 0 ml medications Current Medications Medications Dose Ordered Sig/Sung Route Start Time Stop Time Status Last Admin Dose Admin Vancomycin HCl 0 ml @ 0 mls/hr PER PHARMACY IV 05/26/25 03:30 Acetaminophen/ Hydrocodone Bitart 1 tab Q4HP PRN PO 05/26/25 11:45 Hold Ondansetron HCl 4 mg Q4HP PRN IV 05/26/25 11:45 Docusate Sodium 100 mg BIDPRN PRN PO 05/26/25 11:45 Acetaminophen 650 mg Q6HP PRN PO 05/26/25 11:45 Hold Morphine Sulfate 2 mg Q4HPRN PRN IV 05/26/25 11:45 Nitroglycerin 0.4 mg Q5MINP PRN SL 05/26/25 11:45 Morphine Sulfate 2 mg Q30M PRN IV 05/26/25 11:45 Diagnostic Test (Pha) 1 strip Q6HR 05/26/25 12:00 05/28/25 06:24 1 STRIP Insulin Human Regular Q6HR SC 05/26/25 12:00 05/28/25 00:14 3 UNITS Dextrose 50 ml UD PRN IV 05/26/25 11:45 Ipratropium [place] 0.5 mg Q6HWA [facility] 05/26/25 18:00 05/27/25 19:05 0.5 MG Levalbuterol HCl 1.25 mg Q6HR NEB 05/26/25 18:00 05/28/25 00:11 1.25 MG Meropenem 50 ml @ 17 mls/hr Q8HR IV 05/26/25 14:00 05/28/25 06:24 17 MLS/HR Pantoprazole Sodium 40 mg DAILY IV 05/27/25 10:00 05/28/25 08:56 40 MG Vancomycin HCl 100 ml @ 100 mls/hr Q14H IV 05/26/25 18:00 05/27/25 21:46 100 MLS/HR Metronidazole 100 ml @ 100 mls/hr Q8HR IV 05/27/25 15:57 05/28/25 06:24 100 MLS/HR Potassium Chloride 40 meq/ Sodium Chloride 1,020 ml @ 100 mls/hr [id number] IV 05/28/25 08:45 Potassium Chloride 100 ml @ 50 mls/hr Q2H IV 05/28/25 08:45 05/28/25 12:44 05/28/25 10:45 50 MLS/HR Examination Young male patient lying in the bed, mild acute distress General: Well-built, low-grade fever, palor, mucosae are moist Cardiovascular: Tachycardia but regular S1 and S2. No murmurs, gallops or rubs. No JVD elevation. No pedal edema Respiratory: Normal B/L air entry on room air. Clear lung sounds on auscultation Abdomen: Soft, right lower quadrant tenderness, nondistended, hypoactive bowel sounds, no rebound tenderness, no organomegaly, no masses Genitourinary: Deferred MSK/skin: Mobilizes 4 limbs. Skin is dry and warm per, bite chester left tee Neurological: No motor, no sensitive deficits, normal speech. Pupils are isocoric and reactive. Psych/Mental Status: A/Ox3 laboratory and microbiology Laboratory Tests 05/28/25 05:25 Test 05/28/25 05:25 Range/Units Serum Glucose 189 H 74-106 mg/dL Microbiology Date/Time Source Procedure Growth Status 05/26/25 03:15 Voided Urine Urine Culture - Preliminary No growth Resulted 05/26/25 02:33 Blood Blood Culture - Final Klebsiella pneumoniae Complete Labs and/or images reviewed: Labs reviewed by me, Image(s) reviewed by me Problem List/Assessment/Plan Problem List/Assessment/Plan Sepsis likely secondary to hepatic abscess Transaminitis likely secondary to above ? Tylenol toxicity Anemia likely normocytic chronic disease Acute kidney injury Lactic acidosis Secondary hypercoagulable [id number] 4.8 Prelim blood culture negative CT abdomen shows Large hypodense heterogeneous lesion in the posterior aspect of the right lobe of the liver measuring 8.3 cm in diameter. this is of uncertain etiology. The appearance could be consistent with a hepatic abscess. HEPATIC Neoplasm is also concern. Plan/Recommendation MRI abdomen which shows In regards to the clinical question, right hepatic mass versus abscess demonstrating intermixed T2 signal, predominant peripheral enhancement with peripheral diffusion restriction and overall imaging pattern may be compatible primarily with a hepatic abscess. However, recommend appropriate tissue sampling to exclude superimposed malignancy with the appropriate sampling of the peripheral margin given the central areas largely nonenhancing. Radiology consultation for aspiration versus I&D versus liver biopsy LFTs improving, 2 units platelets ordered. Recommend IV antibiotics, maintenance IV fluids No bowel movements. Continue stool studies for ova and parasites, stool culture, stool WBC Hepatitis panel unremarkable acetaminophen levels unremarkable,, CK levels WNL, LDH 571 Follow up with tumor markers We will continue to follow up Thank you for consulting GI Plan discussed with the patient in which all questions have been answered Case discussed with Dr. Muñoz Plan discussed with: Patient My Orders My Orders Orders - ASHLYN REBOLLAR Procedure Category Date Status Time Pheresis Platelets BBK 05/28/25 Logged 11:08 ASHLYN REBOLLAR May 28, 2025 11:59
--- NOTE | 2025-05-28 14:00 | DVHPN2 ---
Progress Note Date Seen: May 28, 2025 Medical Necessity Reason Pt with a Central, PICC or Fol: No Objective vital signs Vital Sign Date Time Temp Pulse Resp B/P (MAP) Pulse Ox O2 Delivery O2 Flow Rate FiO2 05/28/25 12:31 107 20 100 05/28/25 12:24 96.7 133/86 (102) 96.7 05/28/25 12:23 Nasal Cannula* 2 28 Total Intake and Output 05/27/25 05/27/25 05/28/25 15:00 23:00 07:00 Intake Total 1150 ml 350 ml 0 ml Balance 1150 ml 350 ml 0 ml medications Current Medications Medications Dose Ordered Sig/Sung Route Start Time Stop Time Status Last Admin Dose Admin Vancomycin HCl 0 ml @ 0 mls/hr PER PHARMACY IV 05/26/25 03:30 Acetaminophen/ Hydrocodone Bitart 1 tab Q4HP PRN PO 05/26/25 11:45 Hold Ondansetron HCl 4 mg Q4HP PRN IV 05/26/25 11:45 Docusate Sodium 100 mg BIDPRN PRN PO 05/26/25 11:45 Acetaminophen 650 mg Q6HP PRN PO 05/26/25 11:45 Hold Morphine Sulfate 2 mg Q4HPRN PRN IV 05/26/25 11:45 Nitroglycerin 0.4 mg Q5MINP PRN SL 05/26/25 11:45 Morphine Sulfate 2 mg Q30M PRN IV 05/26/25 11:45 Diagnostic Test (Pha) 1 strip Q6HR 05/26/25 12:00 05/28/25 12:00 1 STRIP Insulin Human Regular Q6HR SC 05/26/25 12:00 05/28/25 12:00 3 UNITS Dextrose 50 ml UD PRN IV 05/26/25 11:45 Ipratropium [place] 0.5 mg Q6HWA NEB 05/26/25 18:00 05/28/25 12:22 0.5 MG Levalbuterol HCl 1.25 mg Q6HR NEB 05/26/25 18:00 05/28/25 12:22 1.25 MG Meropenem 50 ml @ 17 mls/hr Q8HR IV 05/26/25 14:00 05/28/25 06:24 17 MLS/HR Pantoprazole Sodium 40 mg DAILY IV 05/27/25 10:00 05/28/25 08:56 40 MG Vancomycin HCl 100 ml @ 100 mls/hr Q14H IV 05/26/25 18:00 05/28/25 12:00 100 MLS/HR Metronidazole 100 ml @ 100 mls/hr Q8HR IV 05/27/25 15:57 05/28/25 06:24 100 MLS/HR Potassium Chloride 40 meq/ Sodium Chloride 1,020 ml @ 100 mls/hr [id number] IV 05/28/25 08:45 laboratory and microbiology Laboratory Tests 05/28/25 05:25 Test 05/28/25 05:25 Range/Units Serum Glucose 189 H 74-106 mg/dL Problem List/Assessment/Plan Problem List/Assessment/Plan 4year old male with abdominal pain(previously "checked" for the pain about two months ago now with a probable abscess in the right lobe of the liver, will ask radiology to aspirate, abdomen soft, non distended slightly tender in the RUQ 05/28/25 patient will have platelet transfusion to correct he thrombocytopenia prior to Interventional Radiology procedure I will await further progress. Plan discussed with: Patient, Son MARY MEJIA MD May 28, 2025 14:00
[2025-05-29] VITALS (21 sets, daily range): BP systolic 113–132; BP diastolic 38–89; PULSE 94–116; RESP 16–20; TEMP 97.8–100.3; O2SAT 95–100
[2025-05-29] MEDS: VANCOMYCIN 1.5GM/250ML 250 ML IV SCH (00:44)
[2025-05-29 06:33] LABS: Hematocrit 34.4 % (41.0-53.0); Hemoglobin 12.0 g/dL (13.5-17.5); Mean Corpuscular Hemoglobin 30.4 pg (28.0-32.0); Mean Corpuscular Volume 86.9 fL (80.0-100.0); Nucleated Red Blood Cells % 0.0 %
[2025-05-29 06:49] LABS: Anion Gap 13 (5-15); BUN/Creatinine Ratio 23.7 (10.0-20.0); Blood Urea Nitrogen 18 mg/dL (9-23); Potassium 3.6 mmol/L (3.5-5.1)
[2025-05-29 06:51] LABS: Alanine Aminotransferase 348 U/L (7-40); Albumin 2.7 g/dL (3.2-4.8); Alkaline Phosphatase 341 U/L (46-116); Bilirubin, Total 2.3 mg/dL (0.2-1.0); Calcium 7.2 mg/dL (8.7-10.4); Carbon Dioxide 20 mmol/L (20-31); Chloride 113 mmol/L (98-107); Glucose 203 mg/dL (74-106); Sodium 146 mmol/L (136-145); Total Protein 5.1 g/dL (5.7-8.2)
--- NOTE | 2025-05-29 12:06 | DVHPN2 ---
Subjective Patient states he has RUQ pain. Reviewed: Care Plan, H&P, Labs, Medications, Previous Orders Changes from previous H/P or p: No Changes General: Per HPI Eyes: No Pain, No Vision change, No Conjunctivae inflammation, No Eyelid inflammation, No Other, No Redness ENT: No Ear pain, No Ear discharge, No Nose pain, No Nose discharge, No Nose congestion, No Mouth pain, No Mouth swelling, No Throat pain, No Throat swelling, No Other Cardiovascular: No Chest Pain, No Palpitations, No Orthopnea, No Paroxysmal Noc. Dyspnea, No Edema, No Lt Headedness, No Other Respiratory: No Cough, No Dry, No Shortness of breath, No SOB with excertion, No Wheezing, No Hemoptysis, No Pleuritic Pain, No Sputum, No Other Gastrointestinal: No Nausea, No Vomiting; Abdominal Pain; No Diarrhea, No Constipation, No Melena, No Hematochezia, No Other Genitourinary: No Dysuria, No Frequency, No Incontinence, No Hematuria, No Retention, No Other Musculoskeletal: No other, No neck pain, No shoulder pain, No arm pain, No back pain, No hand pain, No leg pain, No foot pain Skin: No Rash, No Lesions, No Jaundice, No Bruising, No Other Objective Vitals Vital Signs Date Time Temp Pulse Resp B/P (MAP) Pulse Ox O2 Delivery O2 Flow Rate FiO2 05/29/25 08:45 98.3 101 19 130/76 (94) 100 98.3 05/29/25 07:41 Nasal Cannula* 2 28 Intake/Output Intake and Output 05/29/25 07:00 Intake Total 759 ml Balance 759 ml Intake Oral 0 ml IV Total 500 ml Blood Product 259 ml # Voids 10 # Bowel Movements 2 General Appearance: Alert, Oriented X3, Cooperative, mild distress HEENT: Atraumatic, PERRLA Lungs: Clear to auscultation, Normal air movement Cardiovascular: Normal S1, Normal S2 Abdomen: Normal bowel sounds, Soft, No tenderness Musculoskeletal: Normal sensory function, Normal motor function Skin: Dry, Intact Psych/Mental Status: Mental status NL, Mood NL Medications Current Medications Medications Dose Ordered Sig/Sung Route Start Time Stop Time Status Last Admin Dose Admin Vancomycin HCl 0 ml @ 0 mls/hr PER PHARMACY IV 05/26/25 03:30 Acetaminophen/ Hydrocodone Bitart 1 tab Q4HP PRN PO 05/26/25 11:45 Hold Ondansetron HCl 4 mg Q4HP PRN IV 05/26/25 11:45 Docusate Sodium 100 mg BIDPRN PRN PO 05/26/25 11:45 Acetaminophen 650 mg Q6HP PRN PO 05/26/25 11:45 Hold Morphine Sulfate 2 mg Q4HPRN PRN IV 05/26/25 11:45 Nitroglycerin 0.4 mg Q5MINP PRN SL 05/26/25 11:45 Morphine Sulfate 2 mg Q30M PRN IV 05/26/25 11:45 Diagnostic Test (Pha) 1 strip Q6HR 05/26/25 12:00 05/29/25 12:01 1 STRIP Insulin Human Regular Q6HR SC 05/26/25 12:00 05/29/25 12:00 8 UNITS Dextrose 50 ml UD PRN IV 05/26/25 11:45 Ipratropium [place] 0.5 mg Q6HWA NEB 05/26/25 18:00 05/29/25 07:40 0.5 MG Levalbuterol HCl 1.25 mg Q6HR NEB 05/26/25 18:00 05/29/25 07:40 1.25 MG Meropenem 50 ml @ 17 mls/hr Q8HR IV 05/26/25 14:00 05/29/25 06:35 17 MLS/HR Pantoprazole Sodium 40 mg DAILY IV 05/27/25 10:00 05/29/25 09:45 40 MG Metronidazole 100 ml @ 100 mls/hr Q8HR IV 05/27/25 15:57 05/29/25 05:11 100 MLS/HR Potassium Chloride 40 meq/ Sodium Chloride 1,020 ml @ 100 mls/hr [id number] IV 05/28/25 08:45 05/29/25 11:53 100 MLS/HR Vancomycin HCl 250 ml @ 166.667 mls/hr Q12H IV 05/29/25 00:00 05/29/25 11:53 166.667 MLS/HR Laboratory Results Laboratory Tests 05/29/25 05:42 Chemistry Test 05/29/25 05:42 Albumin 2.7 g/dL (3.2-4.8) L Calcium Level 7.2 mg/dL (8.7-10.4) L Total Protein 5.1 g/dL (5.7-8.2) L LFT Test 05/29/25 05:42 Alanine Aminotransferase (ALT) 348 U/L (7-40) H Alkaline Phosphatase 341 U/L (46-116) H Aspartate Amino Transferase (AST) 215 U/L (13-40) H Total Bilirubin 2.3 mg/dL (0.2-1.0) H Urinalysis Test 05/26/25 03:15 Urine Color Yellow (Yellow) Urine Clarity Ex.turbid (Clear) Urine pH 5.5 (5.0-9.0) Urine Specific [place] 1.018 (1.001-1.035) Urine Protein 1+ (Negative) H Urine Ketones 1+ (Negative) H Urine Blood 2+ /uL (Negative) H Urine Nitrite Negative (Negative) Urine Bilirubin 1+ (Negative) Urine Urobilinogen 4 mg/dL (Negative) H Urine Leukocyte Esterase Negative /uL (Negative) Urine RBC 2 /hpf (0 - 3) Urine Microscopic WBC 4 /HPF (0-3) H Urine Squamous Epithelial Cells Few /hpf (<5) Urine Amorphous Crystals Few /hpf (None Seen) Urine Bacteria Few /hpf (None Seen) H Urine Hyaline Casts Few /lpf (0 - 2) Urine Mucus Few (None Seen) Urine Glucose 4+ mg/dL (Normal) H Microbiology Microbiology Date/Time Source Procedure Growth Status 05/26/25 03:15 Voided Urine Urine Culture - Final Complete 05/26/25 02:33 Blood Blood Culture - Final Klebsiella pneumoniae Complete Labs and/or images reviewed: Labs reviewed by me Assessment/Plan Assessment/Plan Impression: -Sepsis -Liver abscess -DM -Hepatitis A -Bilateral pna -Acute Hypoxic Respiratory Failure Plan: -Liver MRI: impression of abscess -Consults: Surgery, GI, IR for possible abscess drain -Abx: continue vancomycin, meropenem, flagyl -Blood cultures positive for Klebsiella pneumoniae -IVF with KCL -PPI -Replace platelets -Begin consistent carb diet -Transfer to [facility] -Repeat labs in a.m. Plan discussed with: Patient, Other (RN) Date of Service: May 29, 2025 Billing Provider: BRODY CARPENTER [employer]PL[employer] CAPTAIN Common Visit Codes: [id number] INP/OBS CARE(HIGH) PATRICIA AGUERO STUDENT AIRPLANE CAPTAIN May 29, 2025 12:06
[2025-05-29] MEDS ORDERED: DEXTROSE (50%) 50ML SYRG IV PRN (12:45)
--- NOTE | 2025-05-29 12:57 | DVHDS2 ---
Discharge Summary Date of Admission May 26, 2025 at 11:41 Date of Discharge: May 29, 2025 Admitting Diagnosis Sepsis Labs/Diagnostic Data: Laboratory Results Test 05/29/25 11:33 05/29/25 05:42 05/29/25 00:52 05/28/25 11:03 POC Glucose 335 mg/dl (70-106) White Blood Count 9.2 10^3/uL (4.4-10.8) Red Blood Count 3.96 10^6/uL (4.5-5.90) Hemoglobin 12.0 g/dL (13.5-17.5) Hematocrit 34.4 % (41.0-53.0) Mean Corpuscular Volume 86.9 fL (80.0-100.0) Mean Corpuscular Hemoglobin 30.4 pg (28.0-32.0) Mean Corpuscular Hemoglobin Concent 35.0 g/dL (32.0-36.0) Red Cell Distribution Width 14.7 % (11.8-14.3) Platelet Count 43 10^3/uL (140-450) Mean Platelet Volume 8.4 fL (6.9-10.8) Neutrophils (%) (Auto) 84.8 % (37.0-80.0) Lymphocytes (%) (Auto) 7.5 % (10.0-50.0) Monocytes (%) (Auto) 7.4 % (0.0-12.0) Eosinophils (%) (Auto) 0.1 % (0.0-7.0) Basophils (%) (Auto) 0.2 % (0.0-2.0) Neutrophils # (Auto) 7.8 10 ^3/uL (1.6-8.6) Lymphocytes # (Auto) 0.7 10 ^3/uL (0.4-5.4) Monocytes # (Auto) 0.7 10 ^3/uL (0-1.3) Eosinophils # (Auto) 0 10 ^3/uL (0-0.8) Basophils # (Auto) 0 10 ^3/uL (0-0.2) Nucleated Red Blood Cells 0.0 % Sodium Level 146 mmol/L (136-145) Potassium Level 3.6 mmol/L (3.5-5.1) Chloride Level 113 mmol/L (98-107) Carbon Dioxide Level 20 mmol/L (20-31) Anion Gap 13 (5-15) Blood Urea Nitrogen 18 mg/dL (9-23) Creatinine 0.76 mg/dL (0.700-1.30) Glomerular Filtration Rate Calc 105 mL/min (>90) BUN/Creatinine Ratio 23.7 (10.0-20.0) Serum Glucose 203 mg/dL (74-106) Calcium Level 7.2 mg/dL (8.7-10.4) Total Bilirubin 2.3 mg/dL (0.2-1.0) Aspartate Amino Transferase (AST) 215 U/L (13-40) Alanine Aminotransferase (ALT) 348 U/L (7-40) Alkaline Phosphatase 341 U/L (46-116) Total Protein 5.1 g/dL (5.7-8.2) Albumin 2.7 g/dL (3.2-4.8) Stool Occult Blood Negative (Negative) Stool Occult Blood Sample #3 (Negative) Stool for White Cells None seen Vancomycin Level Trough 6.1 ug/mL (5-10) Test 05/28/25 05:25 05/27/25 05:36 05/26/25 12:25 05/26/25 12:19 Activated Partial Thromboplast Time 24.6 SEC (24.5-34.5) Hemoglobin A1c 7.5 % A1C (<5.7) D-Dimer, Quantitative 4.84 mg/L FEU (0.0-0.49) Serum Osmolality 291 mOsm/kg (278-298) Tumor Marker Alpha Fetoprotein <1.8 ng/mL (0.0-8.4) Carcinoembryonic Antigen 0.92 ng/mL (<=5.0) Acetaminophen Level 6.0 UG/ML (10.0-20.0) Hepatitis A IgM Antibody Positive Hepatitis A Antibody Total Positive (Negative) Hepatitis B Surface Antigen Negative (Negative) Hepatitis B Surface Antibody Negative (Negative) Hepatitis B Core Total Antibody Negative (Negative) Hepatitis B Core IgM Antibody Negative (Negative) Hepatitis C Antibody Negative (Negative) Blood Gas Specimen Type Arterial Blood Gas Sample Site Left radial Blood Gas Patient Temperature 37.0 Arterial Blood Date Drawn [id number] Arterial Blood pH 7.476 (7.350-7.450) Arterial Blood Partial Pressure CO2 19.8 mmHg (35.0-48.0) Arterial Blood Partial Pressure O2 69.3 mmHg (83.0-108.0) Arterial Blood HCO3 14.3 mmol/L (21.0-28.0) Arterial Blood Oxygen Saturation 93.2 % (94.0-98.0) Arterial Blood Base Excess -7.1 mmol/L (-2.0-3.0) Arterial Blood Oxyhemoglobin 92.5 % (94.0-98.0) Arterial Blood Carboxyhemoglobin 0.3 % (0.5-1.5) Arterial Blood Methemoglobin 0.5 % (0.0-1.5) Seven Test Yes Blood Gas Total Hemoglobin 12.60 g/dL (13.5-17.5) Blood Gas Liter Flow 4.00 Blood Gas Modality Nasal cannula FiO2 % 36.0 Blood Gas Critical Value Read Back Yes Blood Gas Notified Whom Edi avery Blood Gas Notified Time [id number] Blood Gas Notified By Teresa david uniform attendant Test 05/26/25 07:55 05/26/25 06:25 05/26/25 04:43 05/26/25 04:40 Prothrombin Time 10.9 sec (9.3-11.8) Prothrombin Time INR 1.03 (0.9-1.15) Lactate Dehydrogenase 571 U/L (120-246) Creatine Kinase 83 U/L (46-171) Troponin I High Sensitivity 5 ng/L (</=54) Lactic Acid Level 2.7 mmol/L (0.4-2.0) Influenza Type A Antigen Negative (Negative) Influenza Type B Antigen Negative (Negative) SARS-CoV-2 Antigen (Rapid) Negative (NEGATIVE) Test 05/26/25 03:15 05/26/25 02:33 05/26/25 02:26 Urine Color Yellow (Yellow) Urine Clarity Ex.turbid (Clear) Urine pH 5.5 (5.0-9.0) Urine Specific [place] 1.018 (1.001-1.035) Urine Protein 1+ (Negative) Urine Ketones 1+ (Negative) Urine Blood 2+ /uL (Negative) Urine Nitrite Negative (Negative) Urine Bilirubin 1+ (Negative) Urine Urobilinogen 4 mg/dL (Negative) Urine Leukocyte Esterase Negative /uL (Negative) Urine RBC 2 /hpf (0 - 3) Urine Microscopic WBC 4 /HPF (0-3) Urine Squamous Epithelial Cells Few /hpf (<5) Urine Amorphous Crystals Few /hpf (None Seen) Urine Bacteria Few /hpf (None Seen) Urine Hyaline Casts Few /lpf (0 - 2) Urine Mucus Few (None Seen) Urine Glucose 4+ mg/dL (Normal) CA 19-9 Antigen 5 U/mL (0-35) CA 125 Antigen 21.1 U/mL (Not Estab.) Lipase 26 U/L (12-53) Other Laboratory Tests 05/29/25 05:42 Brief Hx & Hospital Course: History of Present Illness Terrence Kirby is a 54-year-old male with past medical history of diabetes, and hypertension who came to the hospital for abdominal pain, decreased appetite, and fevers. Patient states he started feeling bad about 5 days ago with flu like symptoms. Then 2 days ago he started having abdominal pain, decreased appetite, and nausea and vomiting. He came to the hospital due to his pain increasing and developing fever, chills, headache, and elevated blood sugars. While in the ER patient showed signs of being septic with fever, sinus tachycardia, tachypneic, & wbc 3.6. His liver enzymes were also elevated prompting an abdominal ultrasound that showed a liver mass vs abscess, followed by at CT of the abdomen. Patient will require a MRI of abdomen with contrast, will have to wait 24 hours for test due to the need for IV contrast. Course of hospitalization: Patient had CT with IV contrast of abdomen and pelvis as well as MRI with IV contrast with impression of liver abscess noted by radiologist. GI, surgical, IR consultation has been placed. At this time patient is awaiting IR drainage placement of liver abscess. Given patient's current sepsis with thrombocytopenia, procedures to be held at this time. [place] [phone] despite receiving one pack of platelets. Patient is now hemodynamically stable with improvement with respiratory distress. Patient will be transferred to [facility] for continued treatment with empiric antibiotic course for Klebsiella pneumoniae as well as awaiting IR consultation with a services for possible drain placement. Patient was agreeable with discharge plan. All questions answered. Physical examination General: Alert and Oriented x3. No acute distress. Well-nourished. Eyes: EOMI. Anicteric. HENT: Moist mucous membranes. Lungs: Clear to auscultation bilaterally. No accessory muscle use. Cardiovascular: Regular rate and rhythm. No murmur. No JVD. Abdomen: Soft, non-tender and non-distended. No palpable masses. Extremities: No edema. Non-tender. Skin: No rashes or lesions. Warm. Jaundice Neurologic: No focal neurological deficits. CN II-XII grossly intact, but not individually tested. Psychiatric: Cooperative. Appropriate mood and affect. Total time spent with patient discussing and formulating plan of care: 35 minutes. This medical document was created using an electronic medical record system with [employer] dictation system. Although this document has been carefully reviewed, there may still be some phonetic and typographical errors. These areas are purely typographical due to imperfections of the software programs, and do not reflect any compromise in the patient's medical care. Consults/Reason for consult Gastroenterology: Liver abscess versus mass Surgical consultation: Liver abscess versus mass Interventional Radiology: Consultation for liver drainage Condition at Discharge: Fair Final Diagnosis/Problems List Sepsis secondary to liver abscess -Liver abscess -DM -Hepatitis A -Bilateral pna -Acute Hypoxic Respiratory Failure -hypokalemia Discharge Disposition: Acute Care Facility Discharge Instruct/Medications Diet: Consistent carbohydrate Activity: No Restrictions, As Tolerated Follow Up/Referral: Per accepting provider Medications: Refer to medication reconciliation 36 Discharge Statement: "Patient was advised to return to the ER or call 911 if any headaches, dizziness, shortness of breath, chest pain, abdominal pain, bleeding, fevers, or worsening of medical condition. Patient was counseled about treatment plan, medications, possible side effects, patientverbalized understanding. All questions were answered to the best of my ability. This discharge took greater then 30 minutes in planning, reviewing documentation, counseling the patient, and discussing with other team members." ASSESSMENT ASSESSMENT Assessment Sepsis secondary to liver abscess Date of Service: May 29, 2025 Billing Provider: BRODY CARPENTER NP Common Visit Codes: 75860-WHF/[id number] DISCH DAY >30min BRODY CARPENTER NP May 29, 2025 12:57
--- NOTE | 2025-05-29 14:51 | DVHPN2 ---
Progress Note Date Seen: May 29, 2025 Resident Creating Document: ASHLYN REBOLLAR RESIDENT Medical Necessity Reason Pt with a Central, PICC or Fol: No Subjective Review of Systems 54-year-old male with no past medical history, does not follow up physician presented to the ER with a chief complaint of fever, chills, abdominal pain for the past 10 days. 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 Patient had a bowel movement earlier today. He reports that he went to [facility] for a complete checkup 2 months back which was unremarkable and a EGD was performed which was also unremarkable at the time patient does not have the reports available. No history of colonoscopy. Patient has reported he was taking 4-5 tablets every day of Tylenol 500 mg for the past 4 days Also reports having a rash on abdomen and the site of the bite chester on the left tee which resolved Past medical history: Denies past surgical history: Denies Medications: Denies Social history: Quit smoking 3 years back, former heavy smoker 1 pack a day for the past 20 years. Denies drinking or drug use Social history continued: Lives alone, has kids. 05/26-Patient seen and examined. He is febrile, tachycardic. Right upper quadrant tenderness. Radiologist consulted. 05/27-patient underwent MRI abdomen with and without which shows In regards to the clinical question, right hepatic mass versus abscess demonstrating intermixed T2 signal, predominant peripheral enhancement with peripheral diffusion restriction and overall imaging pattern may be compatible primarily with a hepatic abscess. However, recommend appropriate tissue sampling to exclude superimposed malignancy with the appropriate sampling of the peripheral margin given the central areas largely nonenhancing. WBC count improved, hemoglobin stable. Platelet trending down. LFTs worsening. 05/28-patient reports abdominal pain. Per [facility] ER doctor, radiologist plans to do liver biopsy, given that patient received platelets. Two platelets units ordered. Had 2 bowel movements overnight. 05/29-patient reports feeling little better, spoke with radiologist, recommend surgical debridement of the likely liver abscess as the position is an accessible by IR. Undergoing 2nd platelet transfusion. Objective vital signs Vital Sign Date Time Temp Pulse Resp B/P (MAP) Pulse Ox O2 Delivery O2 Flow Rate FiO2 05/29/25 12:55 98.6 102 17 132/89 (103) 99 98.6 05/29/25 12:10 Room Air* 0 21 Total Intake and Output 05/28/25 05/28/25 05/29/25 15:00 23:00 07:00 Intake Total 100 ml 100 ml 559 ml Balance 100 ml 100 ml 559 ml medications Current Medications Medications Dose Ordered Sig/Sung Route Start Time Stop Time Status Last Admin Dose Admin Vancomycin HCl 0 ml @ 0 mls/hr PER PHARMACY IV 05/26/25 03:30 Acetaminophen/ Hydrocodone Bitart 1 tab Q4HP PRN PO 05/26/25 11:45 Hold Ondansetron HCl 4 mg Q4HP PRN IV 05/26/25 11:45 Docusate Sodium 100 mg BIDPRN PRN PO 05/26/25 11:45 Acetaminophen 650 mg Q6HP PRN PO 05/26/25 11:45 Hold Morphine Sulfate 2 mg Q4HPRN PRN IV 05/26/25 11:45 Nitroglycerin 0.4 mg Q5MINP PRN SL 05/26/25 11:45 Morphine Sulfate 2 mg Q30M PRN IV 05/26/25 11:45 Ipratropium Apison 0.5 mg Q6HWA NEB 05/26/25 18:00 05/29/25 12:07 0.5 MG Levalbuterol HCl 1.25 mg Q6HR NEB 05/26/25 18:00 05/29/25 12:07 1.25 MG Meropenem 50 ml @ 17 mls/hr Q8HR IV 05/26/25 14:00 05/29/25 06:35 17 MLS/HR Pantoprazole Sodium 40 mg DAILY IV 05/27/25 10:00 05/29/25 09:45 40 MG Metronidazole 100 ml @ 100 mls/hr Q8HR IV 05/27/25 15:57 05/29/25 05:11 100 MLS/HR Potassium Chloride 40 meq/ Sodium Chloride 1,020 ml @ 100 mls/hr [id number] IV 05/28/25 08:45 05/29/25 11:53 100 MLS/HR Vancomycin HCl 250 ml @ 166.667 mls/hr Q12H IV 05/29/25 00:00 05/29/25 11:53 166.667 MLS/HR Diagnostic Test (Pha) 1 strip Q6HR 05/29/25 18:00 Insulin Human Regular Q6HR SC 05/29/25 18:00 Dextrose 50 ml UD PRN IV 05/29/25 12:45 Examination Young male patient lying in the bed, mild acute distress General: Well-built, low-grade fever, palor, mucosae are moist Cardiovascular: Tachycardia but regular S1 and S2. No murmurs, gallops or rubs. No JVD elevation. No pedal edema Respiratory: Normal B/L air entry on room air. Clear lung sounds on auscultation Abdomen: Soft, right lower quadrant tenderness, nondistended, hypoactive bowel sounds, no rebound tenderness, no organomegaly, no masses Genitourinary: Deferred MSK/skin: Mobilizes 4 limbs. Skin is dry and warm per, bite chester left tee Neurological: No motor, no sensitive deficits, normal speech. Pupils are isocoric and reactive. Psych/Mental Status: A/Ox3 laboratory and microbiology Laboratory Tests 05/29/25 05:42 Test 05/29/25 05:42 Range/Units Serum Glucose 203 H 74-106 mg/dL Microbiology Date/Time Source Procedure Growth Status 05/26/25 03:15 Voided Urine Urine Culture - Final Complete 05/26/25 02:33 Blood Blood Culture - Final Klebsiella pneumoniae Complete Labs and/or images reviewed: Labs reviewed by me, Image(s) reviewed by me Problem List/Assessment/Plan Problem List/Assessment/Plan Sepsis likely secondary to hepatic abscess Transaminitis likely secondary to above ? Tylenol toxicity Anemia likely normocytic chronic disease Acute kidney injury Lactic acidosis Secondary hypercoagulable [id number] 4.8 Prelim blood culture negative CT abdomen shows Large hypodense heterogeneous lesion in the posterior aspect of the right lobe of the liver measuring 8.3 cm in diameter. this is of uncertain etiology. The appearance could be consistent with a hepatic abscess. HEPATIC Neoplasm is also concern. Plan/Recommendation MRI abdomen which shows In regards to the clinical question, right hepatic mass versus abscess demonstrating intermixed T2 signal, predominant peripheral enhancement with peripheral diffusion restriction and overall imaging pattern may be compatible primarily with a hepatic abscess. However, recommend appropriate tissue sampling to exclude superimposed malignancy with the appropriate sampling of the peripheral margin given the central areas largely nonenhancing. Radiologist recommending surgical consultation for debridement of the liver abscess. Abscesses and accessible through IR approach. LFTs improving, 2 units platelets transfused. Recommend IV antibiotics, maintenance IV fluids Stool for occult blood and stool WBC negative. Hepatitis panel unremarkable acetaminophen levels unremarkable,, CK levels WNL, LDH 571 Tumor markers unremarkable Follow up with CRP, LDH We will continue to follow up Thank you for consulting GI Plan discussed with the patient in which all questions have been answered Case discussed with Dr. Muñoz Plan discussed with: Patient ASHLYN REBOLLAR RESIDENT May 29, 2025 14:51
--- NOTE | 2025-05-29 16:20 | DVH ---
CHEST RADIOGRAPH Indication: pna Technique: Single frontal view of the chest was obtained Comparison: XY CHEST XRAY 1 VIEW on DOS: 05/26/25 FINDINGS: Lines and Tubes: None Lungs: Improved lung volumes compared to 05 26 2025 no pulmonary consolidation. No pleural effusions or pneumothorax. Cardiomediastinal silhouette is stable. Pleura: No effusion. No pneumothorax. Cardiomediastinal contours: Unremarkable Bones: No acute osseous abnormality. IMPRESSION: 1. Stable chest x-ray when compared to 05/26/2025
[2025-05-29] MEDS: InsuLIN REG 1unit/0.01ml Soln (100units/ml) SC SCH (18:00)
[2025-05-29] MEDS ORDERED: ACETAMINOPHEN 325 MG TAB PO ONE (18:07)
[2025-05-29] MEDS: ACETAMINOPHEN 325 MG TAB PO PRN (18:09)
[2025-05-29] MEDS: ACCU-CHEK COMFORT CURVE STRIP VI SCH (18:10)
== END 2025-05-29 21:45 | disposition short-term general hospital (02) | DRG 720 ==
LOC: ER 02:10 → EDBD 02:10 → OVERFLOW 11:41 → TELE-EAST 05-27 20:57
PROVIDERS: ADMIT Nurse Practitioner Acute Care; ATTEND Nurse Practitioner Acute Care
PROC: 30233R1 Transfusion of Nonautologous Platelets into Peripheral Vein, Percutaneous Approach (ICD-10-PCS; principal; 2025-05-29)
DX: A41.50 Gram-negative sepsis, unspecified (principal); J96.01 Acute respiratory failure with hypoxia; K75.0 Abscess of liver; E87.20 Acidosis, unspecified; J15.69 Pneumonia due to other Gram-negative bacteria; D68.59 Other primary thrombophilia; D69.6 Thrombocytopenia, unspecified; J15.9 Unspecified bacterial pneumonia; N17.9 Acute kidney failure, unspecified; D64.9 Anemia, unspecified; I10 Essential (primary) hypertension; E11.9 Type 2 diabetes mellitus without complications; Z20.822 Contact with and (suspected) exposure to COVID-19; R74.01 Elevation of levels of liver transaminase levels; B15.9 Hepatitis A without hepatic coma; E87.6 Hypokalemia; E80.6 Other disorders of bilirubin metabolism; E78.5 Hyperlipidemia, unspecified; Z87.891 Personal history of nicotine dependence
CPT/HCPCS: 36415; 36600; 71045; 74177; 74183; 76700; 80053; 80074; 80202; 80329; 81001; 82105; 82140; 82270; 82378; 82550; 82805; 82962; 83036; 83605; 83615; 83690; 83930; 84484; 85025; 85048; 85379; 85610; 85730; 86141; 86301; 86304; 86704; 86706; 86708; 86803; 86850; 86900; 86901; 87040; 87077; 87086; 87177; 87186; 87340; 87426; 87804; 93005; 93306; 93970; 94640; 96361; 96365; G0378; J1815; J2185; J2470; J3480; J3490